=== PATIENT | male | born 1940 | race Caucasian/White ===

== ENCOUNTER 2018-10-30 20:03 | Inpatient (IN) | payer MEDICARE, OTHER ==
[~2018-10-30] VITALS: Ht 167.6 cm; Wt 79.0 kg
[2018-10-30 20:54] LABS: BASO # 0.1 x10^3/uL (0.0-0.2); BASO % 1 % (0-3); EOS # 0.1 x10^3/uL (0.0-0.7); EOS % 1 % (0-3); HEMATOCRIT 30.1 % (39.0-53.0); HEMOGLOBIN 10.2 g/dL (13.0-17.5); LYMPH # 2.4 x10^3/uL (1.0-4.8); LYMPH % 24 % (24-48); MEAN CORPUSCULAR HEMOGLOBIN 31 pg (25-35); MEAN CORPUSCULAR HGB CONC 34 g/dL (31-37); MEAN CORPUSCULAR VOLUME 92 fL (79-100); MONO # 0.9 x10^3/uL (0.0-1.1); MONO % 9 % (0-9); NEUT # 6.6 x10^3uL (1.8-7.7); NEUT % 65 % (31-73); PLATELET COUNT 316 x10^3/uL (140-400); RED BLOOD COUNT 3.29 x10^6/uL (4.30-5.70); RED CELL DISTRIBUTION WIDTH 15.2 % (11.5-14.5); WHITE BLOOD COUNT 10.1 x10^3/uL (4.0-11.0)
[2018-10-30 20:56] LABS: BILIRUBIN,URINE NEG (NEG); CLARITY,URINE TURBID; COLOR,URINE AMBER; GLUCOSE,URINE NEG (NEG); NITRITE,URINE NEG (NEG); UROBILINOGEN,URINE 0.2 mg/dL (0.2 mg/dL)
[2018-10-30 20:57] LABS: BACTERIA,URINE FEW /HPF (0-FEW); RBC,URINE TNTC /HPF (0-2); SQUAMOUS EPITHELIAL CELL,UR OCC /LPF; WBC,URINE TNTC /HPF (0-4)
[2018-10-30] MEDS ORDERED: TIOT18CA IH (21:02)
[2018-10-30] MEDS ORDERED: CRESTOR40 MG PO (21:02)
[2018-10-30] MEDS ORDERED: GLIP5TAB10 PO (21:02)
[2018-10-30] MEDS ORDERED: TRAM50TA PO (21:02)
[2018-10-30] MEDS ORDERED: AMLO10TA8 PO (21:02)
[2018-10-30] MEDS ORDERED: POLY2500 PO (21:02)
[2018-10-30] MEDS ORDERED: VENL75TA PO (21:02)
[2018-10-30] MEDS ORDERED: SODI30SP NS (21:02)
[2018-10-30] MEDS ORDERED: FLUT1AER IH (21:02)
[2018-10-30] MEDS ORDERED: CHLO15MO2 MM (21:02)
[2018-10-30] MEDS ORDERED: ZIPR20CA2 PO (21:02)
[2018-10-30] MEDS ORDERED: VENL37.56 PO (21:02)
[2018-10-30] MEDS ORDERED: TAMS0.4C97 PO (21:02)
[2018-10-30 21:11] LABS: ALBUMIN 2.9 g/dL (3.4-5.0); ALBUMIN/GLOBULIN RATIO 0.7 (1.0-1.7); CALCIUM 8.9 mg/dL (8.5-10.1); CREATININE 2.1 mg/dL (0.7-1.3); GFR 30.8; POTASSIUM 3.6 mmol/L (3.5-5.1); TOTAL BILIRUBIN 0.3 mg/dL (0.2-1.0); TOTAL PROTEIN 7.1 g/dL (6.4-8.2)
--- NOTE | 2018-10-30 22:15 | ED.ADGEN ---
Past History Past Medical History: CHF, COPD, Dementia, Renal Failure, UTI Past Surgical History: Other Alcohol Use: None Drug Use: None Adult General Chief Complaint Chief Complaint Encounter for medical evaluation HPI HPI Patient is a 78-year-old male with history of COPD, congestive heart failure and dementia who presents from local [facility] facility for medical evaluation prior to psychiatric admission. Patient reportedly to have aggressive behavior at [facility] facility. No new medications, change of medication, medical illnesses reported. Incomplete medical records available. Patient is calm, talkative and cooperative on ED arrival. Has suprapubic catheter in place. Denies fever chills, nausea vomiting or sweats. History is limited due to presence of dementia.[] Review of Systems Review of Systems Review symptoms as per history of present illness. All other review symptoms are negative. All other systems were reviewed and found to be within normal limits, except as documented in this note. Allergies Allergies Allergies Coded Allergies Type Severity Reaction Last Updated Verified cefazolin Allergy Intermediate 10/30/18 Yes Physical Exam Physical Exam Constitutional: Well developed, well nourished, no acute distress. [] HENT: Normocephalic, atraumatic, bilateral external ears normal, oropharynx moist, no oral exudates, nose normal. [] Eyes: PERRLA, EOMI, conjunctiva normal, no discharge. [] Neck: Normal range of motion, no tenderness, supple, no stridor. [] Cardiovascular:Heart rate regular rhythm, no murmur [] Lungs & Thorax: Bilateral breath sounds clear to auscultation [] Abdomen: Bowel sounds normal, soft, no tendernesS. [] Skin: Warm, dry, no erythema, no rash. [] Back: No tenderness. [] Extremities: No tenderness, no cyanosis, no clubbing, ROM intact, no edema. [] Neurologic: Alert and oriented to person, normal motor function, normal sensory function, no focal deficits noted. [] Psychologic: Affect normal, judgement normal, mood normal. [] Current Patient Data Vital Signs Vital Signs Date Time Temp Pulse Resp B/P (MAP) Pulse Ox O2 Delivery O2 Flow Rate FiO2 10/30/18 21:06 98.0 92 Room Air 10/30/18 21:05 80 20 154/87 (109) Lab Results Laboratory Tests Test 10/30/18 20:35 10/30/18 20:40 White Blood Count 10.1 x10^3/uL (4.0-11.0) Red Blood Count 3.29 x10^6/uL (4.30-5.70) L Hemoglobin 10.2 g/dL (13.0-17.5) L Hematocrit 30.1 % (39.0-53.0) L Mean Corpuscular Volume 92 fL (79-100) Mean Corpuscular Hemoglobin 31 pg (25-35) Mean Corpuscular Hemoglobin Concent 34 g/dL (31-37) Red Cell Distribution Width 15.2 % (11.5-14.5) H Platelet Count 316 x10^3/uL (140-400) Neutrophils (%) (Auto) 65 % (31-73) Lymphocytes (%) (Auto) 24 % (24-48) Monocytes (%) (Auto) 9 % (0-9) Eosinophils (%) (Auto) 1 % (0-3) Basophils (%) (Auto) 1 % (0-3) Neutrophils # (Auto) 6.6 x10^3uL (1.8-7.7) Lymphocytes # (Auto) 2.4 x10^3/uL (1.0-4.8) Monocytes # (Auto) 0.9 x10^3/uL (0.0-1.1) Eosinophils # (Auto) 0.1 x10^3/uL (0.0-0.7) Basophils # (Auto) 0.1 x10^3/uL (0.0-0.2) Sodium Level 140 mmol/L (136-145) Potassium Level 3.6 mmol/L (3.5-5.1) Chloride Level 103 mmol/L (98-107) Carbon Dioxide Level 29 mmol/L (21-32) Anion Gap 8 (6-14) Blood Urea Nitrogen 33 mg/dL (8-26) H Creatinine 2.1 mg/dL (0.7-1.3) H Estimated GFR (Cockcroft-Gault) 30.8 BUN/Creatinine Ratio 16 (6-20) Glucose Level 115 mg/dL (70-99) H Calcium Level 8.9 mg/dL (8.5-10.1) Total Bilirubin 0.3 mg/dL (0.2-1.0) Aspartate Amino Transferase (AST) 18 U/L (15-37) Alanine Aminotransferase (ALT) 21 U/L (16-63) Alkaline Phosphatase 87 U/L (46-116) Total Protein 7.1 g/dL (6.4-8.2) Albumin 2.9 g/dL (3.4-5.0) L Albumin/Globulin Ratio 0.7 (1.0-1.7) L Urine Collection Type Unknown Urine Color Maria Eugenia Urine Clarity Turbid Urine pH 6.0 Urine Specific [place] >=1.030 Urine Protein >100 mg/dl (NEG-TRACE) Urine Glucose (UA) Neg mg/dL (NEG) Urine Ketones (Stick) Neg mg/dL (NEG) Urine Blood Large (NEG) Urine Nitrite Neg (NEG) Urine Bilirubin Neg (NEG) Urine Urobilinogen Dipstick 0.2 mg/dL (0.2 mg/dL) Urine Leukocyte Esterase Mod (NEG) Urine RBC Tntc /HPF (0-2) Urine WBC Tntc /HPF (0-4) Urine Squamous Epithelial Cells Occ /LPF Urine Bacteria Few /HPF (0-FEW) EKG EKG [EKG: Reviewed] Radiology/Procedures Radiology/Procedures [] Course & Med Decision Making Course & Med Decision Making Pertinent Labs and Imaging studies reviewed. (See chart for details) [Patient is medically stable. Suprapubic catheter in place. No urinary tract symptoms reported. Medically stable at time of admission] Final Impression Final Impression [] Dragon Disclaimer Dragon Disclaimer This electronic medical record was generated, in whole or in part, using a voice recognition dictation system. RENA MERCEDES DO Oct 30, 2018 22:15
[2018-10-30 23:00] VITALS: BP 159/72
[2018-10-30] MEDS ORDERED: METHYL SALICYLATE/MENTHOL TOPICAL OINTMENT 29GM TUBE. TP PRN (23:30)
[2018-10-30] MEDS ORDERED: MAG HYDROX/AL HYDROX/SIMETH 30 ML ORAL.SUSP PO PRN (23:30)
[2018-10-30] MEDS ORDERED: MAGNESIUM HYDROXIDE 2,400 MG/30 ML ORAL.SUSP. PO PRN (23:30)
[2018-10-31] MEDS: ZIPRASIDONE 20 MG CAPSULE. PO SCH ×2 (02:22→20:27)
--- NOTE | 2018-10-31 03:40 | EKG ---
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
[2018-10-31 06:14] VITALS: BP 137/74
[2018-10-31] MEDS: VENLAFAXINE 37.5 MG TABLET. PO SCH (07:52)
[2018-10-31] MEDS: amLODIPine BESYLATE 10 MG TABLET PO SCH (07:53)
[2018-10-31] MEDS: POLYETHYLENE GLYCOL 3350 17 GM PACKET. PO SCH (07:53)
[2018-10-31] MEDS: glipiZIDE 5 MG TABLET PO SCH (07:53)
[2018-10-31] MEDS: TAMSULOSIN 0.4 MG CAP.ER.24H. PO SCH (07:53)
[2018-10-31] MEDS: CHLORHEXIDINE 0.12% 15 ML MOUTHWASH. MM SCH ×2 (07:53→08:15)
[2018-10-31] MEDS: IPRATRPIUM/ALBUTEROL 0.5/2.5MG 3 ML NEBU. NEB SCH ×2 (08:00→12:00)
[2018-10-31] MEDS: BUDESONIDE 0.5 MG/2 ML NEBU NEB SCH ×2 (08:00→20:00)
[2018-10-31] MEDS ORDERED: NON FORMULARY ITEM (Fluticasone/Vilanterol (Breo Ellipta 100-25 Mcg Inh) 1 PUFF) IH SCH (09:00)
[2018-10-31] MEDS ORDERED: VENLAFAXINE HCL 75 MG PO SCH (09:00)
[2018-10-31] MEDS: SODIUM CHLORIDE 0.65% NASAL SPRAY 45ML BOTTLE. NS SCH ×2 (09:00→20:32)
[2018-10-31] MEDS ORDERED: NON FORMULARY ITEM (Tiotropium Bromide (Spiriva) 1 CAP) IH SCH (09:00)
[2018-10-31 16:18] VITALS: BP 131/82
[2018-10-31 18:24] LABS: BACTERIA,URINE FEW /HPF (0-FEW); BILIRUBIN,URINE NEG (NEG); CLARITY,URINE TURBID; COLOR,URINE AMBER; GLUCOSE,URINE NEG (NEG); NITRITE,URINE NEG (NEG); RBC,URINE TNTC /HPF (0-2); SQUAMOUS EPITHELIAL CELL,UR OCC /LPF; UROBILINOGEN,URINE 0.2 mg/dL (0.2 mg/dL); WBC,URINE 20-40 /HPF (0-4)
[2018-10-31 20:06] LABS: THYROXINE 6.4 ug/dL (4.5-12.0)
[2018-10-31] MEDS: ATORVASTATIN CALCIUM 20 MG TABLET PO SCH (20:30)
[2018-10-31] MEDS ORDERED: ZIPRASIDONE 20 MG CAPSULE. PO SCH (21:00)
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
[2018-11-01 06:20] VITALS: BP 151/81
[2018-11-01] MEDS: IPRATRPIUM/ALBUTEROL 0.5/2.5MG 3 ML NEBU. NEB SCH ×4 (08:00→20:58)
[2018-11-01] MEDS: BUDESONIDE 0.5 MG/2 ML NEBU NEB SCH ×2 (08:00→20:58)
[2018-11-01] MEDS: glipiZIDE 5 MG TABLET PO SCH (08:21)
[2018-11-01] MEDS: VENLAFAXINE 37.5 MG TABLET. PO SCH (08:21)
[2018-11-01] MEDS: TAMSULOSIN 0.4 MG CAP.ER.24H. PO SCH (08:21)
[2018-11-01] MEDS: amLODIPine BESYLATE 10 MG TABLET PO SCH (08:21)
[2018-11-01] MEDS: POLYETHYLENE GLYCOL 3350 17 GM PACKET. PO SCH (08:21)
[2018-11-01] MEDS: CHLORHEXIDINE 0.12% 15 ML MOUTHWASH. MM SCH (09:00)
[2018-11-01] MEDS: SODIUM CHLORIDE 0.65% NASAL SPRAY 45ML BOTTLE. NS SCH ×2 (09:00→20:07)
[2018-11-01 15:55] VITALS: BP 149/76
[2018-11-01] MEDS: ZIPRASIDONE 20 MG CAPSULE. PO SCH (19:59)
[2018-11-01] MEDS: ATORVASTATIN CALCIUM 20 MG TABLET PO SCH (19:59)
[2018-11-01] MEDS: ACETAMINOPHEN 325 MG TABLET PO PRN (21:08)
[2018-11-01] MEDS: traMADol 50 MG TABLET PO PRN (21:10)
--- NOTE | 2018-11-01 23:38 | PN ---
DATE: 11/01/2018 SUBJECTIVE: The patient was seen today, met with the staff, chart reviewed. The patient has been irritable, angry, explosive temper, and also inappropriate behaviors. The patient is not able to follow directions. The patient exhibits poor impulse control, or low frustration tolerance and significant cognitive impairment. OBSERVATION: VITAL SIGNS: Temperature 97.7, blood pressure 151/81, pulse 93, respirations 16, O2 sat 96%. Slept about 6 hours last night. The patient's appetite is fair. MEDICATIONS: The patient's current medications include venlafaxine 112.5 mg that he was taking for quite some time, olanzapine 2.5 mg q. 2 hours p.r.n., and Geodon 40 mg at night. LABORATORY DATA: The patient's lab reviewed. The patient's hemoglobin is 10.2. ASSESSMENT: 1. Dementia, most likely vascular versus Alzheimer's with behavior problems. 2. Impulse control disorder, unspecified. 3. Mood disorder, unspecified. PLAN: To continue with the current treatment. We will consider increasing Geodon to 60, if the patient continues to show major behavior problems. LENGTH OF STAY: 7-10 days. KRISTY CRUZ MD DR: NIKKI/niya JOB#: [id number] / [id number]
[2018-11-02 06:11] VITALS: BP 139/84
[2018-11-02] MEDS: BUDESONIDE 0.5 MG/2 ML NEBU NEB SCH ×3 (06:12→20:06)
[2018-11-02] MEDS: IPRATRPIUM/ALBUTEROL 0.5/2.5MG 3 ML NEBU. NEB SCH ×4 (06:12→20:06)
[2018-11-02] MEDS: TAMSULOSIN 0.4 MG CAP.ER.24H. PO SCH (08:48)
[2018-11-02] MEDS: glipiZIDE 5 MG TABLET PO SCH (08:48)
[2018-11-02] MEDS: VENLAFAXINE 37.5 MG TABLET. PO SCH (08:48)
[2018-11-02] MEDS: amLODIPine BESYLATE 10 MG TABLET PO SCH (08:49)
[2018-11-02] MEDS: CHLORHEXIDINE 0.12% 15 ML MOUTHWASH. MM SCH ×2 (08:49→09:00)
[2018-11-02] MEDS: POLYETHYLENE GLYCOL 3350 17 GM PACKET. PO SCH ×2 (08:49→09:00)
[2018-11-02] MEDS: SODIUM CHLORIDE 0.65% NASAL SPRAY 45ML BOTTLE. NS SCH ×3 (08:53→19:38)
[2018-11-02] MEDS: traMADol 50 MG TABLET PO PRN ×2 (09:24→19:38)
[2018-11-02] MEDS ORDERED: OLANZapine IM 10 MG VIAL. IM PRN (11:45)
[2018-11-02 16:01] VITALS: BP 115/68
[2018-11-02] MEDS: ATORVASTATIN CALCIUM 20 MG TABLET PO SCH (19:36)
[2018-11-02] MEDS: ZIPRASIDONE 20 MG CAPSULE. PO SCH (19:38)
--- NOTE | 2018-11-03 00:30 | PN ---
DATE: 11/02/2018 SUBJECTIVE: The patient was seen today, met with the staff, chart reviewed and also completed the treatment review conference. I also spoke with the patient's son who is his guardian, discussed at length with regard to the patient's problems and past treatments and some anxiety about giving the patient too much medications and the side effects. Son reports that patient has been having problems at least for the past 8 or 9 years, a gradual decline in his cognitive functioning. He also stated that he did not want him to be on Zyprexa because side effects, but staff reports that the patient is on Zyprexa 5 mg p.r.n. apparently showed good response to it. Son was given information about the medications side effects, some of the medications that the patient has been treated with in the past and current. The patient apparently has been in placements before and apparently, he had problems, most of the places. Apparently, he was getting worse to the point. He is threatening and also not able to communicate his feelings and his needs. The patient is also verbally abusive towards the female staff. OBSERVATION: VITAL SIGNS: Temperature 98.0, blood pressure 139/84, pulse 93, respirations 20, O2 sat 95%. Slept about 6-1/2 hours last night. The patient's behavior continued to worsen. He is irritable, angry and demanding, also confused. The patient also is not able to complete a sentence. The patient has significant problems with his memory, forgets things, keep repeating himself. LABORATORY DATA: The patient's lab reviewed. MEDICATIONS: The patient's current medications, venlafaxine 112.5 mg daily, olanzapine 2.5 mg q. 2 hours p.r.n. The patient also received 5 mg p.o. today because of severe behavior problems, difficult to manage. The patient is also on Geodon 40 mg at night. The patient's lab reviewed. The patient is not having any side effects to the medications. ASSESSMENT: 1. Dementia, most likely vascular versus Alzheimer's with behavior problems. 2. Impulse control disorder, unspecified. 3. Mood disorder, unspecified. PLAN: To continue with the treatment. Continue to monitor the behavior. If the problem continues to worsen, we will try to increase the Geodon to 60 mg daily. LENGTH OF STAY: 7-10 days. KRISTY CRUZ MD DR: Kevin JOB#: [id number] / [id number]
[2018-11-03] MEDS: IPRATRPIUM/ALBUTEROL 0.5/2.5MG 3 ML NEBU. NEB SCH ×4 (05:47→20:09)
[2018-11-03] MEDS: BUDESONIDE 0.5 MG/2 ML NEBU NEB SCH ×3 (05:47→20:09)
[2018-11-03 06:24] VITALS: BP 118/72
[2018-11-03] MEDS: VENLAFAXINE 37.5 MG TABLET. PO SCH (07:55)
[2018-11-03] MEDS: FLUCONAZOLE 100 MG TABLET. PO SCH (07:55)
[2018-11-03] MEDS: glipiZIDE 5 MG TABLET PO SCH (07:55)
[2018-11-03] MEDS: TAMSULOSIN 0.4 MG CAP.ER.24H. PO SCH (07:55)
[2018-11-03] MEDS: amLODIPine BESYLATE 10 MG TABLET PO SCH (07:56)
[2018-11-03] MEDS: SODIUM CHLORIDE 0.65% NASAL SPRAY 45ML BOTTLE. NS SCH ×2 (09:00→19:43)
[2018-11-03] MEDS: CHLORHEXIDINE 0.12% 15 ML MOUTHWASH. MM SCH (09:00)
[2018-11-03] MEDS: POLYETHYLENE GLYCOL 3350 17 GM PACKET. PO SCH (09:00)
[2018-11-03 16:04] VITALS: BP 148/70
[2018-11-03] MEDS: ZIPRASIDONE 20 MG CAPSULE. PO SCH (19:42)
[2018-11-03] MEDS: ATORVASTATIN CALCIUM 20 MG TABLET PO SCH (19:43)
[2018-11-03] MEDS: DOXYCYCLINE HYCLATE 100 MG TABLET PO SCH (19:44)
[2018-11-03] MEDS: LACTOBACILLUS RHAMNOSUS GG 1 CAPSULE. PO SCH (19:44)
--- NOTE | 2018-11-03 23:12 | PN ---
DATE: 11/03/2018 SUBJECTIVE: The patient was seen today, met with the staff, chart reviewed. Staff reports he continues to be labile, agitated, yelling and calms down and also becomes talkative and coherent. OBSERVATION: Temperature 97.3, blood pressure 118/72, pulse 78, respirations 18, O2 sat 98%. Slept about 6 hours last night. The patient's appetite is normal. The patient apparently lately has been not eating well, losing weight. MEDICATIONS: The patient's current medications include venlafaxine that was decreased to 75 mg daily. His Geodon was increased to 60 mg at night. He is also on Zyprexa as p.r.n. ASSESSMENT: 1. Dementia, most likely vascular versus Alzheimer's with behavior problems. 2. Impulse control disorder, unspecified; mood disorder, unspecified. PLAN: Continue with the treatment. KRISTY CRUZ MD DR: NIKKI/niya JOB#: [id number] / [id number]
[2018-11-04] MEDS: traMADol 50 MG TABLET PO PRN (02:03)
[2018-11-04] MEDS: BUDESONIDE 0.5 MG/2 ML NEBU NEB SCH (05:12)
[2018-11-04] MEDS: IPRATRPIUM/ALBUTEROL 0.5/2.5MG 3 ML NEBU. NEB SCH ×3 (05:12→16:35)
[2018-11-04 06:24] VITALS: BP 145/72
[2018-11-04] MEDS: CHLORHEXIDINE 0.12% 15 ML MOUTHWASH. MM SCH (08:29)
[2018-11-04] MEDS: glipiZIDE 5 MG TABLET PO SCH (08:29)
[2018-11-04] MEDS: FLUCONAZOLE 100 MG TABLET. PO SCH (08:29)
[2018-11-04] MEDS: VENLAFAXINE 37.5 MG TABLET. PO SCH (08:30)
[2018-11-04] MEDS: POLYETHYLENE GLYCOL 3350 17 GM PACKET. PO SCH (08:30)
[2018-11-04] MEDS: TAMSULOSIN 0.4 MG CAP.ER.24H. PO SCH (08:30)
[2018-11-04] MEDS: amLODIPine BESYLATE 10 MG TABLET PO SCH (08:31)
[2018-11-04] MEDS: DOXYCYCLINE HYCLATE 100 MG TABLET PO SCH ×2 (08:31→19:28)
[2018-11-04] MEDS: SODIUM CHLORIDE 0.65% NASAL SPRAY 45ML BOTTLE. NS SCH ×2 (08:31→19:29)
[2018-11-04] MEDS: LACTOBACILLUS RHAMNOSUS GG 1 CAPSULE. PO SCH ×2 (08:32→19:29)
[2018-11-04 15:50] VITALS: BP 139/74
[2018-11-04] MEDS: ZIPRASIDONE 20 MG CAPSULE. PO SCH (19:28)
[2018-11-04] MEDS: ATORVASTATIN CALCIUM 20 MG TABLET PO SCH (19:29)
[2018-11-04] MEDS: hydrOXYzine HCL 25 MG TABLET PO PRN (20:48)
--- NOTE | 2018-11-04 22:05 | PDOC ---
Exam Note: Geremias Note: Please also refer to the separate dictated note~for this date of service dictated separately.~Patient seen individually. Discussed the patient with Nursing staff reviewed the chart.~Reviewed interim history and current functioning. Reviewed vital signs,~Labs/ Radiology~and current medications noted below. Continue current treatment with the changes noted in the dictated addendum note Assessment: Vital Signs/I&O: Vital Signs Date Time Temp Pulse Resp B/P (MAP) Pulse Ox O2 Delivery O2 Flow Rate FiO2 11/04/18 16:35 97 Room Air 11/04/18 15:50 97.5 102 20 139/74 (95) I & O 11/03/18 11/03/18 11/04/18 14:59 22:59 06:59 Intake Total 720 ml 240 ml 120 ml Balance 720 ml 240 ml 120 ml Labs: Laboratory Tests Test 11/04/18 07:31 Glucose (Fingerstick) 122 mg/dL (70-99) H Current Medications: Meds: Current Medications Medications (Trade) Dose Ordered Sig/Hoda Route PRN Reason Start Time Stop Time Status Last Admin Dose Admin Venlafaxine HCl (Effexor) 75 mg DAILY PO 11/04/18 09:00 11/04/18 08:30 Olanzapine (ZyPREXA ZYDIS) 2.5 mg PRN Q2HR PRN PO PSYCHOSIS 11/04/18 20:30 11/04/18 20:48 Hydroxyzine HCl (Atarax) 25 mg PRN Q2HR PRN PO ANXIETY / AGITATION 11/04/18 20:30 11/04/18 20:48 I have reviewed the current psychotropics carefully including drug interactions. Risk benefit ratio favors no change other than as noted in my dictated progress note. 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
[2018-11-05 06:23] VITALS: BP 145/74
[2018-11-05] MEDS: POLYETHYLENE GLYCOL 3350 17 GM PACKET. PO SCH (08:14)
[2018-11-05] MEDS: glipiZIDE 5 MG TABLET PO SCH (08:14)
[2018-11-05] MEDS: LACTOBACILLUS RHAMNOSUS GG 1 CAPSULE. PO SCH ×2 (08:14→19:41)
[2018-11-05] MEDS: FLUCONAZOLE 100 MG TABLET. PO SCH (08:14)
[2018-11-05] MEDS: VENLAFAXINE 37.5 MG TABLET. PO SCH (08:14)
[2018-11-05] MEDS: TAMSULOSIN 0.4 MG CAP.ER.24H. PO SCH (08:14)
[2018-11-05] MEDS: DOXYCYCLINE HYCLATE 100 MG TABLET PO SCH ×2 (08:15→19:41)
[2018-11-05] MEDS: amLODIPine BESYLATE 10 MG TABLET PO SCH (08:15)
[2018-11-05] MEDS: SODIUM CHLORIDE 0.65% NASAL SPRAY 45ML BOTTLE. NS SCH ×2 (09:00→19:41)
[2018-11-05] MEDS: CHLORHEXIDINE 0.12% 15 ML MOUTHWASH. MM SCH (09:00)
[2018-11-05] MEDS: BUDESONIDE 0.5 MG/2 ML NEBU NEB SCH ×2 (10:07→20:00)
[2018-11-05] MEDS: IPRATRPIUM/ALBUTEROL 0.5/2.5MG 3 ML NEBU. NEB SCH ×4 (10:07→16:00)
[2018-11-05 16:53] VITALS: BP 105/62
[2018-11-05] MEDS: ATORVASTATIN CALCIUM 20 MG TABLET PO SCH (19:40)
[2018-11-05] MEDS: ZIPRASIDONE 20 MG CAPSULE. PO SCH (19:41)
[2018-11-05] MEDS: hydrOXYzine HCL 25 MG TABLET PO PRN (21:49)
[2018-11-05] MEDS: traMADol 50 MG TABLET PO PRN (21:49)
--- NOTE | 2018-11-05 22:46 | PDOC ---
Exam Note: Geremias Note: Please also refer to the separate dictated note~for this date of service dictated separately.~Patient seen individually. Discussed the patient with Nursing staff reviewed the chart.~Reviewed interim history and current functioning. Reviewed vital signs,~Labs/ Radiology~and current medications noted below. Continue current treatment with the changes noted in the dictated addendum note Assessment: Vital Signs/I&O: Vital Signs Date Time Temp Pulse Resp B/P (MAP) Pulse Ox O2 Delivery O2 Flow Rate FiO2 11/05/18 21:49 99 11/05/18 16:53 98.6 87 18 105/62 (76) 11/05/18 15:59 Room Air I & O 11/04/18 11/04/18 11/05/18 14:59 22:59 06:59 Intake Total 600 ml 240 ml 120 ml Balance 600 ml 240 ml 120 ml Labs: Laboratory Tests Test 11/05/18 07:20 Glucose (Fingerstick) 98 mg/dL (70-99) Current Medications: I have reviewed the current psychotropics carefully including drug interactions. Risk benefit ratio favors no change other than as noted in my dictated progress note. 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
[2018-11-06] MEDS: IPRATRPIUM/ALBUTEROL 0.5/2.5MG 3 ML NEBU. NEB SCH ×5 (05:16→20:00)
[2018-11-06 06:09] VITALS: BP 119/63
[2018-11-06] MEDS: LACTOBACILLUS RHAMNOSUS GG 1 CAPSULE. PO SCH ×2 (08:22→20:14)
[2018-11-06] MEDS: glipiZIDE 5 MG TABLET PO SCH (08:22)
[2018-11-06] MEDS: VENLAFAXINE 37.5 MG TABLET. PO SCH (08:23)
[2018-11-06] MEDS: DIVALPROEX 125 MG CAP.SPRINK PO SCH ×3 (08:23→17:18)
[2018-11-06] MEDS: amLODIPine BESYLATE 10 MG TABLET PO SCH (08:23)
[2018-11-06] MEDS: FLUCONAZOLE 100 MG TABLET. PO SCH (08:23)
[2018-11-06] MEDS: TAMSULOSIN 0.4 MG CAP.ER.24H. PO SCH (08:23)
[2018-11-06] MEDS: DOXYCYCLINE HYCLATE 100 MG TABLET PO SCH ×2 (08:24→20:14)
[2018-11-06] MEDS: CHLORHEXIDINE 0.12% 15 ML MOUTHWASH. MM SCH (09:00)
[2018-11-06] MEDS: SODIUM CHLORIDE 0.65% NASAL SPRAY 45ML BOTTLE. NS SCH ×2 (09:00→20:28)
[2018-11-06] MEDS: POLYETHYLENE GLYCOL 3350 17 GM PACKET. PO SCH (09:00)
[2018-11-06] MEDS: BUDESONIDE 0.5 MG/2 ML NEBU NEB SCH ×2 (11:44→20:00)
[2018-11-06] MEDS ORDERED: HALOPERIDOL LACT 5 MG/ML VIAL. IM SCH (15:30)
[2018-11-06 16:39] VITALS: BP 117/57
[2018-11-06] MEDS: ATORVASTATIN CALCIUM 20 MG TABLET PO SCH (20:14)
[2018-11-06] MEDS: ZIPRASIDONE 20 MG CAPSULE. PO SCH (20:14)
--- NOTE | 2018-11-06 22:47 | PDOC ---
Exam Note: Geremias Note: Please also refer to the separate dictated note~for this date of service dictated separately.~Patient seen individually. Discussed the patient with Nursing staff reviewed the chart.~Reviewed interim history and current functioning. Reviewed vital signs,~Labs/ Radiology~and current medications noted below. Continue current treatment with the changes noted in the dictated addendum note Assessment: Vital Signs/I&O: Vital Signs Date Time Temp Pulse Resp B/P (MAP) Pulse Ox O2 Delivery O2 Flow Rate FiO2 11/06/18 16:39 97.4 65 16 117/57 (77) 95 11/06/18 11:45 Room Air I & O 11/05/18 11/05/18 11/06/18 15:00 23:00 07:00 Intake Total 960 ml 240 ml 240 ml Balance 960 ml 240 ml 240 ml Labs: Laboratory Tests Test 11/06/18 07:23 Glucose (Fingerstick) 87 mg/dL (70-99) Current Medications: Meds: Current Medications Medications (Trade) Dose Ordered Sig/Hoda Route PRN Reason Start Time Stop Time Status Last Admin Dose Admin Divalproex Sodium (Depakote Sprinkles) 125 mg TID@0900,1300,1700 PO 11/06/18 09:00 11/06/18 17:18 Haloperidol Lactate (Haldol) 5 mg DAILY IM 11/06/18 15:30 11/06/18 19:12 DC 11/06/18 15:17 Lorazepam (Ativan Inj) 0.5 mg DAILY IM 11/06/18 15:30 11/06/18 15:17 I have reviewed the current psychotropics carefully including drug interactions. Risk benefit ratio favors no change other than as noted in my dictated progress note. 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
--- NOTE | 2018-11-07 00:20 | PN ---
DATE: 11/04/2018 PSYCHIATRIC PROGRESS NOTE This late entry 11/04/2018 covers elements not covered in my initial note. SUBJECTIVE: I met with the patient in the evening. The patient was quite agitated in the morning, confused. Reviewed his history from Dr. Nevarez who had been covering for me over the past 1 week. At times, he has been helpful with staff, other times quite agitated and somewhat slow with cares. He has been rhyming rather profane statements "fuck a duck" per nursing report. He seems to get overstimulated easily on the unit. REVIEW OF SYSTEMS: No CV, , pulmonary, eye, ENT system symptoms on review. Reliability poor. MENTAL STATUS EXAM: Oriented to himself. Insight, judgment, recent and remote memory, attention, concentration, fund of knowledge poor, consistent with his diagnosis. I had to follow him around the unit to assess him as he could not sit still. LABORATORY DATA: Reviewed. IMPRESSION: Major neurocognitive disorder, Alzheimer, vascular with delusion, depression, behavioral disturbance; anxiety disorder, unspecified; impulse control disorder, unspecified. Rest unchanged. PLAN: Continue current psychotropics. Effexor ER 75 mg a day, Geodon 60 mg at bedtime, Zyprexa p.r.n., consider Depakote as a mood stabilizer if agitation resurfaces. MAN Jeremy TARANGO MD DR: BHARATHI/niya JOB#: [id number] / [id number]
--- NOTE | 2018-11-07 02:43 | PN ---
DATE: 11/05/2018 PSYCHIATRIC PROGRESS NOTE This is a late entry 11/05/2018, covers the elements not covered in my initial note. SUBJECTIVE: I met with the patient in the evening. The patient slept 5 hours previous night. Previous night, the patient had a very difficult evening. He was noted to be extremely agitated, combative, hitting and banging on the doors, cursing at staff, slept 5 hours previous evenings. 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 Refused labs in the morning. REVIEW OF SYSTEMS: No CV, , pulmonary, eye, ENT system symptoms on review. Reliability poor. MENTAL STATUS EXAM: Oriented to himself. Insight, judgment, recent and remote memory, attention, concentration, fund of knowledge poor, consistent with his diagnosis mentioned in my initial note. IMPRESSION: Major neurocognitive disorder, Alzheimer, vascular with delusion, depression, behavioral disturbance; anxiety disorder, unspecified; impulse control disorder, unspecified. PLAN: Start Depakote Sprinkles 125 mg 9:00 a.m., 1:00 p.m., 5:00 p.m. Check CBC, CMP, valproic acid level in 3 days. Continue Geodon 60 mg at bedtime, Effexor ER 75 mg a day, Zyprexa and Atarax p.r.n. for now. MAN Jeremy TARANGO MD DR: BHARATHI/niya JOB#: [id number] / [id number]
[2018-11-07 03:18] LABS: BASO % 0 % (0-3); EOS # 0.2 x10^3/uL (0.0-0.7); EOS % 2 % (0-3); HEMATOCRIT 29.6 % (39.0-53.0); HEMOGLOBIN 9.9 g/dL (13.0-17.5); LYMPH # 3.2 x10^3/uL (1.0-4.8); LYMPH % 30 % (24-48); MEAN CORPUSCULAR HEMOGLOBIN 31 pg (25-35); MEAN CORPUSCULAR HGB CONC 34 g/dL (31-37); MEAN CORPUSCULAR VOLUME 92 fL (79-100); MONO # 0.9 x10^3/uL (0.0-1.1); MONO % 8 % (0-9); NEUT # 6.5 x10^3uL (1.8-7.7); NEUT % 60 % (31-73); PLATELET COUNT 371 x10^3/uL (140-400); RED BLOOD COUNT 3.21 x10^6/uL (4.30-5.70); RED CELL DISTRIBUTION WIDTH 15.3 % (11.5-14.5); WHITE BLOOD COUNT 10.9 x10^3/uL (4.0-11.0)
[2018-11-07 04:10] LABS: ALBUMIN 2.5 g/dL (3.4-5.0); ALBUMIN/GLOBULIN RATIO 0.6 (1.0-1.7); CALCIUM 9.3 mg/dL (8.5-10.1); GFR 32.6; TOTAL BILIRUBIN 0.3 mg/dL (0.2-1.0); TOTAL PROTEIN 6.7 g/dL (6.4-8.2)
[2018-11-07] MEDS: IPRATRPIUM/ALBUTEROL 0.5/2.5MG 3 ML NEBU. NEB SCH ×4 (05:16→20:00)
[2018-11-07 06:14] VITALS: BP 116/76
[2018-11-07] MEDS: POLYETHYLENE GLYCOL 3350 17 GM PACKET. PO SCH (08:42)
[2018-11-07] MEDS: glipiZIDE 5 MG TABLET PO SCH (08:42)
[2018-11-07] MEDS: CHLORHEXIDINE 0.12% 15 ML MOUTHWASH. MM SCH (08:42)
[2018-11-07] MEDS: TAMSULOSIN 0.4 MG CAP.ER.24H. PO SCH (08:43)
[2018-11-07] MEDS: VENLAFAXINE 37.5 MG TABLET. PO SCH (08:43)
[2018-11-07] MEDS: LACTOBACILLUS RHAMNOSUS GG 1 CAPSULE. PO SCH ×2 (08:43→19:29)
[2018-11-07] MEDS: amLODIPine BESYLATE 10 MG TABLET PO SCH (08:43)
[2018-11-07] MEDS: DIVALPROEX 125 MG CAP.SPRINK PO SCH ×3 (08:43→17:39)
[2018-11-07] MEDS: DOXYCYCLINE HYCLATE 100 MG TABLET PO SCH ×2 (08:47→19:29)
[2018-11-07] MEDS: SODIUM CHLORIDE 0.65% NASAL SPRAY 45ML BOTTLE. NS SCH ×2 (08:47→19:30)
[2018-11-07] MEDS: BUDESONIDE 0.5 MG/2 ML NEBU NEB SCH ×2 (10:12→20:00)
[2018-11-07] MEDS: traMADol 50 MG TABLET PO PRN (16:01)
--- NOTE | 2018-11-07 16:43 | RAD ---
HUMERUS RIGHT, ELBOW RIGHT 2V, SHOULDER 2+V RIGHT 11/07/2018 3:02 PM INDICATION: Trauma to the right shoulder COMPARISON: None available. TECHNIQUE: 2 views the right shoulder, 2 views of the right humerus and 2 views of the right elbow are provided. FINDINGS: There is no acute fracture or dislocation. There is no elbow joint effusion. Vascular calcifications are present. Scapula appears intact. Clavicle is intact. Bone mineralization is within normal limits. Joint spaces are maintained. Regional soft tissues are within normal limits. There is no soft tissue gas or osseous erosion. IMPRESSION: No acute fracture or dislocation. Electronically signed by: Rhonda Cristobal MD (11/07/2018 4:40 PM) [id number]
[2018-11-07] MEDS: ZIPRASIDONE 20 MG CAPSULE. PO SCH (19:29)
[2018-11-07] MEDS: ATORVASTATIN CALCIUM 20 MG TABLET PO SCH (19:30)
[2018-11-07] MEDS: LORazepam 0.5 MG TABLET PO PRN (19:31)
--- NOTE | 2018-11-07 22:42 | PDOC ---
Exam Note: Geremias Note: Please also refer to the separate dictated note~for this date of service dictated separately.~Patient seen individually. Discussed the patient with Nursing staff reviewed the chart.~Reviewed interim history and current functioning. Reviewed vital signs,~Labs/ Radiology~and current medications noted below. Continue current treatment with the changes noted in the dictated addendum note Assessment: Vital Signs/I&O: Vital Signs Date Time Temp Pulse Resp B/P (MAP) Pulse Ox O2 Delivery O2 Flow Rate FiO2 11/07/18 17:15 96 Room Air 11/07/18 16:16 98.1 94 16 11/07/18 08:43 116/76 I & O 11/06/18 11/06/18 11/07/18 14:59 22:59 06:59 Intake Total 240 ml 240 ml 240 ml Balance 240 ml 240 ml 240 ml Labs: Laboratory Tests Test 11/07/18 03:07 11/07/18 07:31 White Blood Count 10.9 x10^3/uL (4.0-11.0) Red Blood Count 3.21 x10^6/uL (4.30-5.70) L Hemoglobin 9.9 g/dL (13.0-17.5) L Hematocrit 29.6 % (39.0-53.0) L Mean Corpuscular Volume 92 fL (79-100) Mean Corpuscular Hemoglobin 31 pg (25-35) Mean Corpuscular Hemoglobin Concent 34 g/dL (31-37) Red Cell Distribution Width 15.3 % (11.5-14.5) H Platelet Count 371 x10^3/uL (140-400) Neutrophils (%) (Auto) 60 % (31-73) Lymphocytes (%) (Auto) 30 % (24-48) Monocytes (%) (Auto) 8 % (0-9) Eosinophils (%) (Auto) 2 % (0-3) Basophils (%) (Auto) 0 % (0-3) Neutrophils # (Auto) 6.5 x10^3uL (1.8-7.7) Lymphocytes # (Auto) 3.2 x10^3/uL (1.0-4.8) Monocytes # (Auto) 0.9 x10^3/uL (0.0-1.1) Eosinophils # (Auto) 0.2 x10^3/uL (0.0-0.7) Basophils # (Auto) 0.0 x10^3/uL (0.0-0.2) Sodium Level 146 mmol/L (136-145) H Potassium Level 4.0 mmol/L (3.5-5.1) Chloride Level 108 mmol/L (98-107) H Carbon Dioxide Level 29 mmol/L (21-32) Anion Gap 9 (6-14) Blood Urea Nitrogen 30 mg/dL (8-26) H Creatinine 2.0 mg/dL (0.7-1.3) H Estimated GFR (Cockcroft-Gault) 32.6 BUN/Creatinine Ratio 15 (6-20) Glucose Level 104 mg/dL (70-99) H Calcium Level 9.3 mg/dL (8.5-10.1) Total Bilirubin 0.3 mg/dL (0.2-1.0) Aspartate Amino Transferase (AST) 28 U/L (15-37) Alanine Aminotransferase (ALT) 26 U/L (16-63) Alkaline Phosphatase 82 U/L (46-116) Total Protein 6.7 g/dL (6.4-8.2) Albumin 2.5 g/dL (3.4-5.0) L Albumin/Globulin Ratio 0.6 (1.0-1.7) L Glucose (Fingerstick) 114 mg/dL (70-99) H Current Medications: I have reviewed the current psychotropics carefully including drug interactions. Risk benefit ratio favors no change other than as noted in my dictated progress note. 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
--- NOTE | 2018-11-07 23:44 | PN ---
DATE: 11/06/2018 PSYCHIATRIC PROGRESS NOTE This is a late entry 11/06/2018 covers elements not covered in my initial note. SUBJECTIVE: I met with the patient in the evening. The patient slept 6 hours previous night. Pharmacy had indicated that Atarax might contribute to increased QTC interval and we will go ahead and stop it. He is on Zyprexa p.r.n., gets intermittently agitated, was less so than the day before. REVIEW OF SYSTEMS: No CV, , pulmonary, eye, ENT system symptoms on review. Reliability poor. MENTAL STATUS EXAM: Oriented to himself. Insight, judgment, recent and remote memory, attention, concentration, fund of knowledge poor, consistent with his diagnosis. LABORATORY DATA: Reviewed. IMPRESSION: Unchanged from initial note. PLAN: No change from initial note and the changes initiated yesterday will be followed through including the Depakote followed by labs and valproic acid level to be adjusted to therapeutic level. TERRELL TARANGO MD DR: BHARATHI/niya JOB#: [id number] / [id number]
[2018-11-08 06:20] VITALS: BP 149/74
[2018-11-08 06:49] LABS: BASO # 0.1 x10^3/uL (0.0-0.2); BASO % 0 % (0-3); EOS # 0.2 x10^3/uL (0.0-0.7); EOS % 2 % (0-3); HEMATOCRIT 30.9 % (39.0-53.0); HEMOGLOBIN 10.1 g/dL (13.0-17.5); LYMPH # 2.7 x10^3/uL (1.0-4.8); LYMPH % 19 % (24-48); MEAN CORPUSCULAR HEMOGLOBIN 30 pg (25-35); MEAN CORPUSCULAR HGB CONC 33 g/dL (31-37); MEAN CORPUSCULAR VOLUME 92 fL (79-100); MONO # 1.2 x10^3/uL (0.0-1.1); MONO % 8 % (0-9); NEUT # 10.5 x10^3uL (1.8-7.7); NEUT % 71 % (31-73); PLATELET COUNT 411 x10^3/uL (140-400); RED BLOOD COUNT 3.34 x10^6/uL (4.30-5.70); RED CELL DISTRIBUTION WIDTH 15.5 % (11.5-14.5); WHITE BLOOD COUNT 14.7 x10^3/uL (4.0-11.0)
[2018-11-08 07:04] LABS: ALBUMIN 2.6 g/dL (3.4-5.0); ALBUMIN/GLOBULIN RATIO 0.6 (1.0-1.7); ALK PHOS 83 U/L (46-116); ALT (SGPT) 26 U/L (16-63); ANION GAP 8 (6-14); AST (SGOT) 23 U/L (15-37); BLOOD UREA NITROGEN 30 mg/dL (8-26); BUN/CREATININE RATIO 16 (6-20); CALCIUM 9.2 mg/dL (8.5-10.1); CARBON DIOXIDE 30 mmol/L (21-32); CHLORIDE 107 mmol/L (98-107); CREATININE 1.9 mg/dL (0.7-1.3); GFR 34.5; GLUCOSE 95 mg/dL (70-99); POTASSIUM 4.7 mmol/L (3.5-5.1); SODIUM 145 mmol/L (136-145); TOTAL BILIRUBIN 0.3 mg/dL (0.2-1.0)
[2018-11-08 07:05] LABS: VAL ACID 15 mcg/mL (50-100)
[2018-11-08] MEDS: VENLAFAXINE 37.5 MG TABLET. PO SCH (07:22)
[2018-11-08] MEDS: glipiZIDE 5 MG TABLET PO SCH (07:22)
[2018-11-08] MEDS: LACTOBACILLUS RHAMNOSUS GG 1 CAPSULE. PO SCH ×2 (07:22→19:23)
[2018-11-08] MEDS: DIVALPROEX 125 MG CAP.SPRINK PO SCH ×5 (07:23→19:30)
[2018-11-08] MEDS: DOXYCYCLINE HYCLATE 100 MG TABLET PO SCH ×2 (07:23→19:24)
[2018-11-08] MEDS: TAMSULOSIN 0.4 MG CAP.ER.24H. PO SCH (07:23)
[2018-11-08] MEDS: amLODIPine BESYLATE 10 MG TABLET PO SCH (07:23)
[2018-11-08] MEDS: CHLORHEXIDINE 0.12% 15 ML MOUTHWASH. MM SCH (07:24)
[2018-11-08] MEDS: POLYETHYLENE GLYCOL 3350 17 GM PACKET. PO SCH (07:24)
[2018-11-08] MEDS: SODIUM CHLORIDE 0.65% NASAL SPRAY 45ML BOTTLE. NS SCH ×2 (09:00→19:25)
[2018-11-08] MEDS: BUDESONIDE 0.5 MG/2 ML NEBU NEB SCH ×2 (10:07→20:00)
[2018-11-08] MEDS: IPRATRPIUM/ALBUTEROL 0.5/2.5MG 3 ML NEBU. NEB SCH ×2 (10:07→10:08)
[2018-11-08] MEDS ORDERED: IPRATRPIUM/ALBUTEROL 0.5/2.5MG 3 ML NEBU. NEB PRN (11:45)
[2018-11-08 15:43] VITALS: BP 127/58
--- NOTE | 2018-11-08 15:51 | RAD ---
Chest radiograph 11/08/2018 12:58 PM INDICATION: Elevated white count COMPARISON: None available TECHNIQUE: Frontal view of the chest is provided. FINDINGS: The cardiomediastinal silhouette is within normal limits. Median sternotomy changes are present. Mild calcified atheromatous plaque is identified involving the thoracic aorta. There are no pleural effusions. There is no pulmonary vascular congestion. There is no pneumothorax. The lungs are clear. No significant osseous abnormality is identified. IMPRESSION: No acute cardiopulmonary process. Electronically signed by: Rhonda Cristobal MD (11/08/2018 3:48 PM) [email or web address]
[2018-11-08] MEDS: ZIPRASIDONE 20 MG CAPSULE. PO SCH (19:23)
[2018-11-08] MEDS: ATORVASTATIN CALCIUM 20 MG TABLET PO SCH (19:23)
[2018-11-08] MEDS: LORazepam 0.5 MG TABLET PO PRN (21:48)
--- NOTE | 2018-11-08 23:05 | PDOC ---
Exam Note: Geremias Note: Please also refer to the separate dictated note~for this date of service dictated separately.~Patient seen individually. Discussed the patient with Nursing staff reviewed the chart.~Reviewed interim history and current functioning. Reviewed vital signs,~Labs/ Radiology~and current medications noted below. Continue current treatment with the changes noted in the dictated addendum note Assessment: Vital Signs/I&O: Vital Signs Date Time Temp Pulse Resp B/P (MAP) Pulse Ox O2 Delivery O2 Flow Rate FiO2 11/08/18 15:43 98.1 60 20 127/58 (81) 96 11/08/18 10:09 Room Air I & O 11/07/18 11/07/18 11/08/18 15:00 23:00 07:00 Intake Total 600 ml 480 ml Output Total 500 ml Balance 100 ml 480 ml Labs: Laboratory Tests Test 11/08/18 06:44 11/08/18 07:27 White Blood Count 14.7 x10^3/uL (4.0-11.0) H Red Blood Count 3.34 x10^6/uL (4.30-5.70) L Hemoglobin 10.1 g/dL (13.0-17.5) L Hematocrit 30.9 % (39.0-53.0) L Mean Corpuscular Volume 92 fL (79-100) Mean Corpuscular Hemoglobin 30 pg (25-35) Mean Corpuscular Hemoglobin Concent 33 g/dL (31-37) Red Cell Distribution Width 15.5 % (11.5-14.5) H Platelet Count 411 x10^3/uL (140-400) H Neutrophils (%) (Auto) 71 % (31-73) Lymphocytes (%) (Auto) 19 % (24-48) L Monocytes (%) (Auto) 8 % (0-9) Eosinophils (%) (Auto) 2 % (0-3) Basophils (%) (Auto) 0 % (0-3) Neutrophils # (Auto) 10.5 x10^3uL (1.8-7.7) H Lymphocytes # (Auto) 2.7 x10^3/uL (1.0-4.8) Monocytes # (Auto) 1.2 x10^3/uL (0.0-1.1) H Eosinophils # (Auto) 0.2 x10^3/uL (0.0-0.7) Basophils # (Auto) 0.1 x10^3/uL (0.0-0.2) Sodium Level 145 mmol/L (136-145) Potassium Level 4.7 mmol/L (3.5-5.1) Chloride Level 107 mmol/L (98-107) Carbon Dioxide Level 30 mmol/L (21-32) Anion Gap 8 (6-14) Blood Urea Nitrogen 30 mg/dL (8-26) H Creatinine 1.9 mg/dL (0.7-1.3) H Estimated GFR (Cockcroft-Gault) 34.5 BUN/Creatinine Ratio 16 (6-20) Glucose Level 95 mg/dL (70-99) Calcium Level 9.2 mg/dL (8.5-10.1) Total Bilirubin 0.3 mg/dL (0.2-1.0) Aspartate Amino Transferase (AST) 23 U/L (15-37) Alanine Aminotransferase (ALT) 26 U/L (16-63) Alkaline Phosphatase 83 U/L (46-116) Total Protein 7.0 g/dL (6.4-8.2) Albumin 2.6 g/dL (3.4-5.0) L Albumin/Globulin Ratio 0.6 (1.0-1.7) L Valproic Acid Level 15 mcg/mL (50-100) L Valproic Acid Last Dose Date 11/07/2018 Valproic Acid Last Dose Time 2100 Glucose (Fingerstick) 89 mg/dL (70-99) Current Medications: I have reviewed the current psychotropics carefully including drug interactions. Risk benefit ratio favors no change other than as noted in my dictated progress note. 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
--- NOTE | 2018-11-09 01:17 | PN ---
DATE: 11/07/2018 PSYCHIATRIC PROGRESS NOTE This late entry 11/07/2018 covers elements not covered in my initial note. SUBJECTIVE: I met with the patient in the evening. The patient slept for 5-1/2 hours previous night. He has been anxious, restless, but redirects. REVIEW OF SYSTEMS: No CV, , pulmonary, eye, ENT system symptoms on review. Reliability poor. MENTAL STATUS EXAM: Oriented to himself. Insight, judgment, recent and remote memory, attention, concentration, fund of knowledge poor, consistent with his diagnosis mentioned in my initial note. PLAN: No change from initial note. He remains on Geodon, Effexor. We are adjusting the Depakote. We will check labs level on 11/08/2018. Adjust Depakote dosage thereafter. MAN Jeremy TARANGO MD DR: BHARATHI/niya JOB#: [id number] / [id number]
[2018-11-09] MEDS: BUDESONIDE 0.5 MG/2 ML NEBU NEB SCH ×2 (05:29→20:00)
[2018-11-09 05:59] VITALS: BP 124/55
[2018-11-09] MEDS: glipiZIDE 5 MG TABLET PO SCH (07:54)
[2018-11-09] MEDS: DIVALPROEX 125 MG CAP.SPRINK PO SCH ×3 (07:54→16:55)
[2018-11-09] MEDS: VENLAFAXINE 37.5 MG TABLET. PO SCH (07:54)
[2018-11-09] MEDS: LACTOBACILLUS RHAMNOSUS GG 1 CAPSULE. PO SCH ×2 (07:54→19:07)
[2018-11-09] MEDS: CHLORHEXIDINE 0.12% 15 ML MOUTHWASH. MM SCH (07:55)
[2018-11-09] MEDS: TAMSULOSIN 0.4 MG CAP.ER.24H. PO SCH (07:55)
[2018-11-09] MEDS: POLYETHYLENE GLYCOL 3350 17 GM PACKET. PO SCH (07:55)
[2018-11-09] MEDS: SODIUM CHLORIDE 0.65% NASAL SPRAY 45ML BOTTLE. NS SCH ×2 (07:56→19:10)
[2018-11-09] MEDS: DOXYCYCLINE HYCLATE 100 MG TABLET PO SCH ×2 (07:59→19:07)
[2018-11-09 09:43] VITALS: BP 169/74
[2018-11-09] MEDS: amLODIPine BESYLATE 10 MG TABLET PO SCH (09:45)
[2018-11-09 16:02] VITALS: BP 129/62
[2018-11-09 17:40] LABS: BILIRUBIN,URINE NEG (NEG); CLARITY,URINE HAZY; COLOR,URINE YELLOW; GLUCOSE,URINE NEG (NEG); UROBILINOGEN,URINE 0.2 mg/dL (0.2 mg/dL)
[2018-11-09 17:41] LABS: BACTERIA,URINE MOD /HPF (0-FEW); HYALINE CASTS, URINE OCC /HPF; NITRITE,URINE NEG (NEG); SQUAMOUS EPITHELIAL CELL,UR MOD /LPF
[2018-11-09] MEDS: ATORVASTATIN CALCIUM 20 MG TABLET PO SCH (19:08)
[2018-11-09] MEDS: ZIPRASIDONE 20 MG CAPSULE. PO SCH (19:08)
[2018-11-09] MEDS: LORazepam 0.5 MG TABLET PO PRN (20:15)
[2018-11-09] MEDS: traZODone 50 MG TABLET. PO SCH (20:29)
[2018-11-09] MEDS: traMADol 50 MG TABLET PO PRN (21:55)
--- NOTE | 2018-11-09 22:46 | PDOC ---
Exam Note: Geremias Note: Please also refer to the separate dictated note~for this date of service dictated separately.~Patient seen individually. Discussed the patient with Nursing staff reviewed the chart.~Reviewed interim history and current functioning. Reviewed vital signs,~Labs/ Radiology~and current medications noted below. Continue current treatment with the changes noted in the dictated addendum note Assessment: Vital Signs/I&O: Vital Signs Date Time Temp Pulse Resp B/P (MAP) Pulse Ox O2 Delivery O2 Flow Rate FiO2 11/09/18 21:55 18 95 11/09/18 16:02 97.8 82 129/62 (84) 11/09/18 09:43 Room Air I & O 11/08/18 11/08/18 11/09/18 15:00 23:00 07:00 Intake Total 720 ml 660 ml Balance 720 ml 660 ml Labs: Laboratory Tests Test 11/09/18 07:25 11/09/18 17:15 Glucose (Fingerstick) 87 mg/dL (70-99) Urine Collection Type Unknown Urine Color Yellow Urine Clarity Hazy Urine pH 7.0 Urine Specific [place] 1.020 Urine Protein 100 mg/dl (NEG-TRACE) Urine Glucose (UA) Neg mg/dL (NEG) Urine Ketones (Stick) Neg mg/dL (NEG) Urine Blood Mod (NEG) Urine Nitrite Neg (NEG) Urine Bilirubin Neg (NEG) Urine Urobilinogen Dipstick 0.2 mg/dL (0.2 mg/dL) Urine Leukocyte Esterase Mod (NEG) Urine RBC 6-10 /HPF (0-2) Urine WBC 11-20 /HPF (0-4) Urine Squamous Epithelial Cells Mod /LPF Urine Bacteria Mod /HPF (0-FEW) Urine Hyaline Casts Occ /HPF Current Medications: Meds: Current Medications Medications (Trade) Dose Ordered Sig/Hoda Route PRN Reason Start Time Stop Time Status Last Admin Dose Admin Trazodone HCl (Desyrel) 50 mg QHS PO 11/09/18 21:00 11/09/18 20:29 I have reviewed the current psychotropics carefully including drug interactions. Risk benefit ratio favors no change other than as noted in my dictated progress note. 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
[2018-11-09] MEDS ORDERED: traZODone 50 MG TABLET. PO PRN (23:30)
[2018-11-10 05:57] VITALS: BP 122/74
[2018-11-10] MEDS: glipiZIDE 5 MG TABLET PO SCH (08:05)
[2018-11-10] MEDS: SODIUM CHLORIDE 0.65% NASAL SPRAY 45ML BOTTLE. NS SCH ×2 (08:06→19:55)
[2018-11-10] MEDS: LACTOBACILLUS RHAMNOSUS GG 1 CAPSULE. PO SCH ×2 (08:06→19:29)
[2018-11-10] MEDS: DOXYCYCLINE HYCLATE 100 MG TABLET PO SCH ×2 (08:07→19:29)
[2018-11-10] MEDS: DIVALPROEX 125 MG CAP.SPRINK PO SCH ×3 (08:07→19:31)
[2018-11-10] MEDS: TAMSULOSIN 0.4 MG CAP.ER.24H. PO SCH (08:07)
[2018-11-10] MEDS: VENLAFAXINE 37.5 MG TABLET. PO SCH (08:07)
[2018-11-10] MEDS: CHLORHEXIDINE 0.12% 15 ML MOUTHWASH. MM SCH (08:08)
[2018-11-10] MEDS: POLYETHYLENE GLYCOL 3350 17 GM PACKET. PO SCH (08:08)
[2018-11-10] MEDS: amLODIPine BESYLATE 10 MG TABLET PO SCH (08:08)
[2018-11-10] MEDS: BUDESONIDE 0.5 MG/2 ML NEBU NEB SCH ×2 (11:45→20:00)
[2018-11-10 16:21] VITALS: BP 134/67
--- NOTE | 2018-11-10 19:02 | PN ---
DATE: 11/08/2018 PSYCHIATRIC PROGRESS NOTE This late entry 11/08/2018 covers elements not covered in my initial note. SUBJECTIVE: I met with the patient evening of 11/08/2018. The patient was also staffed at a treatment team meeting with the entire team morning of 11/08/2018 and the patient's son Andi attended this lengthy treatment team meeting. We reviewed the patient's history. I answered many questions by the son about non-psychotropic medication interventions, patient's diagnosis, drug interactions that may be causing some of his agitation. We will have a pharmacy consult to look at albuterol and other medications for the potential to worsen his behaviors and try and minimize this coordinated via Dr. Chapman. Appetite 100%, sleeping 7-8 hours, slept 7-1/2 hours previous night, agitated, aggressive, combative at times, compliant. REVIEW OF SYSTEMS: No CV, , pulmonary, eye, ENT system symptoms on review. Reliability poor. MENTAL STATUS EXAM: Oriented to himself. Insight, judgment, recent and remote memory, attention, concentration, fund of knowledge poor, consistent with his diagnosis mentioned in my initial note. PLAN: No change from initial note other than what is noted above. TERRELL TARANGO MD DR: BHARATHI/niya JOB#: [id number] / [id number]
[2018-11-10] MEDS: ZIPRASIDONE 20 MG CAPSULE. PO SCH (19:29)
[2018-11-10] MEDS: ATORVASTATIN CALCIUM 20 MG TABLET PO SCH (19:29)
[2018-11-10] MEDS: traZODone 50 MG TABLET. PO SCH (19:29)
--- NOTE | 2018-11-10 19:54 | PN ---
DATE: 11/09/2018 PSYCHIATRIC PROGRESS NOTE This late entry of 11/09/2018 covers the elements not covered in my initial note. SUBJECTIVE: I met with the patient evening of 11/09/2018. The patient slept 6 hours previous night. Remains confused, intermittently agitated, more so in the evening, banging on doors, anxious, restless, with marked mood lability. I met with him individually at length to address this. He responds positively when I talked about his son, Andi and my conversation with his son. REVIEW OF SYSTEMS: No CV, , pulmonary, eye, ENT system symptoms on review. Reliability poor. MENTAL STATUS EXAM: Oriented to himself. Insight, judgment, recent and remote memory, attention, concentration, fund of knowledge poor, consistent with his diagnosis mentioned in my initial note. PLAN: No change from initial note. Depakote has been initiated. We will check labs level. Continue Geodon, Effexor along with Zyprexa p.r.n. Pharmacy consult has been requested. We will defer recommendations to Dr. Chapman. TERRELL TARANGO MD DR: BHARATHI/niya JOB#: [id number] / [id number]
--- NOTE | 2018-11-10 22:14 | PDOC ---
Exam Note: Geremias Note: Please also refer to the separate dictated note~for this date of service dictated separately.~Patient seen individually. Discussed the patient with Nursing staff reviewed the chart.~Reviewed interim history and current functioning. Reviewed vital signs,~Labs/ Radiology~and current medications noted below. Continue current treatment with the changes noted in the dictated addendum note Assessment: Vital Signs/I&O: Vital Signs Date Time Temp Pulse Resp B/P (MAP) Pulse Ox O2 Delivery O2 Flow Rate FiO2 11/10/18 20:14 98 Room Air 11/10/18 16:21 98.4 83 20 134/67 (89) I & O 11/09/18 11/09/18 11/10/18 14:59 22:59 06:59 Intake Total 720 ml 240 ml 420 ml Balance 720 ml 240 ml 420 ml Labs: Laboratory Tests Test 11/10/18 07:13 Glucose (Fingerstick) 98 mg/dL (70-99) Current Medications: Meds: Current Medications Medications (Trade) Dose Ordered Sig/Hoda Route PRN Reason Start Time Stop Time Status Last Admin Dose Admin Divalproex Sodium (Depakote Sprinkles) 250 mg BID PO 11/10/18 21:00 11/10/18 19:31 I have reviewed the current psychotropics carefully including drug interactions. Risk benefit ratio favors no change other than as noted in my dictated progress note. 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
[2018-11-11 06:09] VITALS: BP 122/68
[2018-11-11] MEDS: LACTOBACILLUS RHAMNOSUS GG 1 CAPSULE. PO SCH ×2 (08:03→19:19)
[2018-11-11] MEDS: CHLORHEXIDINE 0.12% 15 ML MOUTHWASH. MM SCH (08:03)
[2018-11-11] MEDS: SODIUM CHLORIDE 0.65% NASAL SPRAY 45ML BOTTLE. NS SCH ×2 (08:03→19:19)
[2018-11-11] MEDS: glipiZIDE 5 MG TABLET PO SCH (08:03)
[2018-11-11 08:04] LABS: BASO # 0.1 x10^3/uL (0.0-0.2); BASO % 1 % (0-3); EOS # 0.1 x10^3/uL (0.0-0.7); EOS % 1 % (0-3); HEMATOCRIT 31.1 % (39.0-53.0); HEMOGLOBIN 10.1 g/dL (13.0-17.5); LYMPH % 15 % (24-48); MEAN CORPUSCULAR HEMOGLOBIN 30 pg (25-35); MEAN CORPUSCULAR HGB CONC 32 g/dL (31-37); MEAN CORPUSCULAR VOLUME 94 fL (79-100); MONO # 1.1 x10^3/uL (0.0-1.1); MONO % 9 % (0-9); NEUT # 9.6 x10^3uL (1.8-7.7); NEUT % 75 % (31-73); PLATELET COUNT 378 x10^3/uL (140-400); RED BLOOD COUNT 3.32 x10^6/uL (4.30-5.70); RED CELL DISTRIBUTION WIDTH 15.5 % (11.5-14.5); WHITE BLOOD COUNT 12.9 x10^3/uL (4.0-11.0)
[2018-11-11] MEDS: POLYETHYLENE GLYCOL 3350 17 GM PACKET. PO SCH (08:04)
[2018-11-11] MEDS: TAMSULOSIN 0.4 MG CAP.ER.24H. PO SCH (08:04)
[2018-11-11] MEDS: VENLAFAXINE 37.5 MG TABLET. PO SCH (08:04)
[2018-11-11] MEDS: DIVALPROEX 125 MG CAP.SPRINK PO SCH ×3 (08:04→19:19)
[2018-11-11] MEDS: DOXYCYCLINE HYCLATE 100 MG TABLET PO SCH ×2 (08:05→19:19)
[2018-11-11 08:27] LABS: ALBUMIN 2.6 g/dL (3.4-5.0); ALBUMIN/GLOBULIN RATIO 0.6 (1.0-1.7); CALCIUM 8.8 mg/dL (8.5-10.1); CREATININE 1.9 mg/dL (0.7-1.3); GFR 34.5; POTASSIUM 4.4 mmol/L (3.5-5.1); TOTAL BILIRUBIN 0.3 mg/dL (0.2-1.0); TOTAL PROTEIN 7.1 g/dL (6.4-8.2)
[2018-11-11] MEDS: amLODIPine BESYLATE 10 MG TABLET PO SCH (09:00)
[2018-11-11] MEDS: BUDESONIDE 0.5 MG/2 ML NEBU NEB SCH ×2 (10:33→19:39)
[2018-11-11 15:59] VITALS: BP 121/69
[2018-11-11] MEDS: LORazepam 0.5 MG TABLET PO PRN (17:42)
[2018-11-11] MEDS: ATORVASTATIN CALCIUM 20 MG TABLET PO SCH (19:19)
[2018-11-11] MEDS: traZODone 50 MG TABLET. PO SCH (19:19)
[2018-11-11] MEDS: ZIPRASIDONE 20 MG CAPSULE. PO SCH (19:19)
[2018-11-11] MEDS: traMADol 50 MG TABLET PO PRN (21:54)
--- NOTE | 2018-11-11 22:55 | PDOC ---
Exam Note: Geremias Note: Please also refer to the separate dictated note~for this date of service dictated separately.~Patient seen individually. Discussed the patient with Nursing staff reviewed the chart.~Reviewed interim history and current functioning. Reviewed vital signs,~Labs/ Radiology~and current medications noted below. Continue current treatment with the changes noted in the dictated addendum note Assessment: Vital Signs/I&O: Vital Signs Date Time Temp Pulse Resp B/P (MAP) Pulse Ox O2 Delivery O2 Flow Rate FiO2 11/11/18 21:54 98 11/11/18 15:59 97.6 93 20 121/69 (86) 11/11/18 10:34 Room Air I & O 11/10/18 11/10/18 11/11/18 15:00 23:00 07:00 Intake Total 600 ml 480 ml Balance 600 ml 480 ml Labs: Laboratory Tests Test 11/11/18 07:17 11/11/18 07:51 Glucose (Fingerstick) 126 mg/dL (70-99) H White Blood Count 12.9 x10^3/uL (4.0-11.0) H Red Blood Count 3.32 x10^6/uL (4.30-5.70) L Hemoglobin 10.1 g/dL (13.0-17.5) L Hematocrit 31.1 % (39.0-53.0) L Mean Corpuscular Volume 94 fL (79-100) Mean Corpuscular Hemoglobin 30 pg (25-35) Mean Corpuscular Hemoglobin Concent 32 g/dL (31-37) Red Cell Distribution Width 15.5 % (11.5-14.5) H Platelet Count 378 x10^3/uL (140-400) Neutrophils (%) (Auto) 75 % (31-73) H Lymphocytes (%) (Auto) 15 % (24-48) L Monocytes (%) (Auto) 9 % (0-9) Eosinophils (%) (Auto) 1 % (0-3) Basophils (%) (Auto) 1 % (0-3) Neutrophils # (Auto) 9.6 x10^3uL (1.8-7.7) H Lymphocytes # (Auto) 2.0 x10^3/uL (1.0-4.8) Monocytes # (Auto) 1.1 x10^3/uL (0.0-1.1) Eosinophils # (Auto) 0.1 x10^3/uL (0.0-0.7) Basophils # (Auto) 0.1 x10^3/uL (0.0-0.2) Sodium Level 142 mmol/L (136-145) Potassium Level 4.4 mmol/L (3.5-5.1) Chloride Level 105 mmol/L (98-107) Carbon Dioxide Level 29 mmol/L (21-32) Anion Gap 8 (6-14) Blood Urea Nitrogen 34 mg/dL (8-26) H Creatinine 1.9 mg/dL (0.7-1.3) H Estimated GFR (Cockcroft-Gault) 34.5 BUN/Creatinine Ratio 18 (6-20) Glucose Level 133 mg/dL (70-99) H Lactic Acid Level 0.8 mmol/L (0.4-2.0) Calcium Level 8.8 mg/dL (8.5-10.1) Total Bilirubin 0.3 mg/dL (0.2-1.0) Aspartate Amino Transferase (AST) 25 U/L (15-37) Alanine Aminotransferase (ALT) 27 U/L (16-63) Alkaline Phosphatase 87 U/L (46-116) Total Protein 7.1 g/dL (6.4-8.2) Albumin 2.6 g/dL (3.4-5.0) L Albumin/Globulin Ratio 0.6 (1.0-1.7) L Current Medications: Meds: Current Medications Medications (Trade) Dose Ordered Sig/Hoda Route PRN Reason Start Time Stop Time Status Last Admin Dose Admin Divalproex Sodium (Depakote Sprinkles) 125 mg 1300 PO 11/11/18 13:00 11/11/18 11:57 I have reviewed the current psychotropics carefully including drug interactions. Risk benefit ratio favors no change other than as noted in my dictated progress note. 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
[2018-11-12 05:51] VITALS: BP 136/58
[2018-11-12] MEDS: CHLORHEXIDINE 0.12% 15 ML MOUTHWASH. MM SCH (08:04)
[2018-11-12] MEDS: glipiZIDE 5 MG TABLET PO SCH (08:04)
[2018-11-12] MEDS: SODIUM CHLORIDE 0.65% NASAL SPRAY 45ML BOTTLE. NS SCH ×2 (08:04→22:12)
[2018-11-12] MEDS: LACTOBACILLUS RHAMNOSUS GG 1 CAPSULE. PO SCH ×2 (08:04→19:09)
[2018-11-12] MEDS: VENLAFAXINE 37.5 MG TABLET. PO SCH (08:05)
[2018-11-12] MEDS: DIVALPROEX 125 MG CAP.SPRINK PO SCH ×3 (08:05→19:09)
[2018-11-12] MEDS: TAMSULOSIN 0.4 MG CAP.ER.24H. PO SCH (08:05)
[2018-11-12] MEDS: POLYETHYLENE GLYCOL 3350 17 GM PACKET. PO SCH (08:06)
[2018-11-12] MEDS: amLODIPine BESYLATE 10 MG TABLET PO SCH (08:07)
[2018-11-12] MEDS: DOXYCYCLINE HYCLATE 100 MG TABLET PO SCH ×2 (08:07→19:09)
[2018-11-12] MEDS: BUDESONIDE 0.5 MG/2 ML NEBU NEB SCH ×2 (10:49→20:51)
[2018-11-12] MEDS: LORazepam 0.5 MG TABLET PO PRN ×3 (15:33→21:02)
[2018-11-12 16:21] VITALS: BP 125/69
[2018-11-12] MEDS: traZODone 50 MG TABLET. PO SCH (19:09)
[2018-11-12] MEDS: ATORVASTATIN CALCIUM 20 MG TABLET PO SCH (19:10)
[2018-11-12] MEDS: ZIPRASIDONE 20 MG CAPSULE. PO SCH (19:10)
[2018-11-12] MEDS: traMADol 50 MG TABLET PO PRN (22:05)
--- NOTE | 2018-11-12 22:07 | PN ---
DATE: 11/10/2018 PSYCHIATRIC PROGRESS NOTE This late entry 11/10/2018 covers elements not covered in my initial note. SUBJECTIVE: The patient slept 5-3/4 hours previous night. He has been less aggressive. UA has reflux to culture. REVIEW OF SYSTEMS: No CV, , pulmonary, eye, ENT system symptoms on review. Reliability poor. MENTAL STATUS EXAM: Oriented to himself. Insight, judgment, recent and remote memory, attention, concentration, fund of knowledge poor, consistent with his diagnosis mentioned in my initial note. PLAN: Valproic acid level was 15, on Depakote Sprinkle 125 mg t.i.d. We will increase to 250 b.i.d., 125 mg daily. Check CBC, CMP, valproic acid level in 3 days. Await urine culture. Rest unchanged for now. MAN Jeremy TARANGO MD DR: BHARATHI/niya JOB#: [id number] / [id number]
--- NOTE | 2018-11-12 22:13 | PN ---
DATE: 11/12/2018 PSYCHIATRIC PROGRESS NOTE This late entry 11/11/2018 covers elements not covered in my initial note. SUBJECTIVE: I met with the patient in the evening of 11/11/2018. The patient slept 4-1/2 hours previous night, remains confused, has not had to go to the [address] [place] [address] to reduce stimuli, had a good day, agitated in the evening. Received Ativan and Zyprexa. He got into a confrontation with another delusional demented psychotic patient. Did redirect. REVIEW OF SYSTEMS: No CV, , pulmonary, eye, ENT system symptoms on review. MENTAL STATUS EXAM: Oriented to himself. Insight, judgment, recent and remote memory, attention, concentration, fund of knowledge poor, consistent with his diagnosis mentioned in my initial note. PLAN: No change from initial note. MAN Jeremy TARANGO MD DR: BHARATHI/niya JOB#: [id number] / [id number]
--- NOTE | 2018-11-12 22:37 | PDOC ---
Exam Note: Geremias Note: Please also refer to the separate dictated note~for this date of service dictated separately.~Patient seen individually. Discussed the patient with Nursing staff reviewed the chart.~Reviewed interim history and current functioning. Reviewed vital signs,~Labs/ Radiology~and current medications noted below. Continue current treatment with the changes noted in the dictated addendum note Assessment: Vital Signs/I&O: Vital Signs Date Time Temp Pulse Resp B/P (MAP) Pulse Ox O2 Delivery O2 Flow Rate FiO2 11/12/18 22:05 18 94 11/12/18 20:51 Room Air 11/12/18 16:21 98.0 80 125/69 (87) I & O 11/11/18 11/11/18 11/12/18 14:59 22:59 06:59 Intake Total 600 ml 480 ml 240 ml Balance 600 ml 480 ml 240 ml Labs: Laboratory Tests Test 11/12/18 07:23 Glucose (Fingerstick) 88 mg/dL (70-99) Current Medications: I have reviewed the current psychotropics carefully including drug interactions. Risk benefit ratio favors no change other than as noted in my dictated progress note. 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
[2018-11-13] MEDS: BUDESONIDE 0.5 MG/2 ML NEBU NEB SCH ×2 (05:14→22:28)
[2018-11-13 05:49] VITALS: BP 155/77
[2018-11-13 06:55] LABS: BASO # 0.1 x10^3/uL (0.0-0.2); BASO % 1 % (0-3); EOS # 0.3 x10^3/uL (0.0-0.7); EOS % 2 % (0-3); HEMATOCRIT 29.1 % (39.0-53.0); HEMOGLOBIN 9.6 g/dL (13.0-17.5); LYMPH # 2.4 x10^3/uL (1.0-4.8); LYMPH % 22 % (24-48); MEAN CORPUSCULAR HEMOGLOBIN 31 pg (25-35); MEAN CORPUSCULAR HGB CONC 33 g/dL (31-37); MEAN CORPUSCULAR VOLUME 93 fL (79-100); MONO # 1.3 x10^3/uL (0.0-1.1); MONO % 12 % (0-9); NEUT % 64 % (31-73); PLATELET COUNT 324 x10^3/uL (140-400); RED BLOOD COUNT 3.12 x10^6/uL (4.30-5.70); RED CELL DISTRIBUTION WIDTH 15.4 % (11.5-14.5); WHITE BLOOD COUNT 10.9 x10^3/uL (4.0-11.0)
[2018-11-13 07:08] LABS: ALBUMIN 2.2 g/dL (3.4-5.0); ALBUMIN/GLOBULIN RATIO 0.5 (1.0-1.7); ALK PHOS 72 U/L (46-116); ALT (SGPT) 22 U/L (16-63); ANION GAP 8 (6-14); AST (SGOT) 21 U/L (15-37); BLOOD UREA NITROGEN 33 mg/dL (8-26); BUN/CREATININE RATIO 19 (6-20); CALCIUM 8.5 mg/dL (8.5-10.1); CARBON DIOXIDE 29 mmol/L (21-32); CHLORIDE 109 mmol/L (98-107); CREATININE 1.7 mg/dL (0.7-1.3); GFR 39.3; GLUCOSE 87 mg/dL (70-99); POTASSIUM 3.9 mmol/L (3.5-5.1); SODIUM 146 mmol/L (136-145); TOTAL BILIRUBIN 0.2 mg/dL (0.2-1.0); TOTAL PROTEIN 6.3 g/dL (6.4-8.2)
[2018-11-13 07:09] LABS: VAL ACID 33 mcg/mL (50-100)
[2018-11-13] MEDS: CHLORHEXIDINE 0.12% 15 ML MOUTHWASH. MM SCH (07:44)
[2018-11-13] MEDS: glipiZIDE 5 MG TABLET PO SCH (07:44)
[2018-11-13] MEDS: SODIUM CHLORIDE 0.65% NASAL SPRAY 45ML BOTTLE. NS SCH ×2 (07:44→21:00)
[2018-11-13] MEDS: TAMSULOSIN 0.4 MG CAP.ER.24H. PO SCH (07:45)
[2018-11-13] MEDS: DIVALPROEX 125 MG CAP.SPRINK PO SCH ×3 (07:45→19:24)
[2018-11-13] MEDS: LACTOBACILLUS RHAMNOSUS GG 1 CAPSULE. PO SCH ×2 (07:45→19:23)
[2018-11-13] MEDS: POLYETHYLENE GLYCOL 3350 17 GM PACKET. PO SCH (07:45)
[2018-11-13] MEDS: VENLAFAXINE 37.5 MG TABLET. PO SCH (07:45)
[2018-11-13] MEDS: amLODIPine BESYLATE 10 MG TABLET PO SCH (07:46)
[2018-11-13] MEDS: DOXYCYCLINE HYCLATE 100 MG TABLET PO SCH (07:46)
[2018-11-13] MEDS: ZIPRASIDONE 20 MG CAPSULE. PO SCH ×2 (13:41→19:24)
[2018-11-13 15:52] VITALS: BP 131/76
[2018-11-13] MEDS: traZODone 50 MG TABLET. PO SCH (19:24)
[2018-11-13] MEDS: ATORVASTATIN CALCIUM 20 MG TABLET PO SCH (19:24)
--- NOTE | 2018-11-13 22:34 | PDOC ---
Exam Note: Geremias Note: Please also refer to the separate dictated note~for this date of service dictated separately.~Patient seen individually. Discussed the patient with Nursing staff reviewed the chart.~Reviewed interim history and current functioning. Reviewed vital signs,~Labs/ Radiology~and current medications noted below. Continue current treatment with the changes noted in the dictated addendum note Assessment: Vital Signs/I&O: Vital Signs Date Time Temp Pulse Resp B/P (MAP) Pulse Ox O2 Delivery O2 Flow Rate FiO2 11/13/18 15:52 98.0 89 17 131/76 (94) 90 11/13/18 05:15 Room Air I & O 11/12/18 11/12/18 11/13/18 14:59 22:59 06:59 Intake Total 960 ml 240 ml 240 ml Balance 960 ml 240 ml 240 ml Labs: Laboratory Tests Test 11/13/18 06:39 11/13/18 07:33 White Blood Count 10.9 x10^3/uL (4.0-11.0) Red Blood Count 3.12 x10^6/uL (4.30-5.70) L Hemoglobin 9.6 g/dL (13.0-17.5) L Hematocrit 29.1 % (39.0-53.0) L Mean Corpuscular Volume 93 fL (79-100) Mean Corpuscular Hemoglobin 31 pg (25-35) Mean Corpuscular Hemoglobin Concent 33 g/dL (31-37) Red Cell Distribution Width 15.4 % (11.5-14.5) H Platelet Count 324 x10^3/uL (140-400) Neutrophils (%) (Auto) 64 % (31-73) Lymphocytes (%) (Auto) 22 % (24-48) L Monocytes (%) (Auto) 12 % (0-9) H Eosinophils (%) (Auto) 2 % (0-3) Basophils (%) (Auto) 1 % (0-3) Neutrophils # (Auto) 7.0 x10^3uL (1.8-7.7) Lymphocytes # (Auto) 2.4 x10^3/uL (1.0-4.8) Monocytes # (Auto) 1.3 x10^3/uL (0.0-1.1) H Eosinophils # (Auto) 0.3 x10^3/uL (0.0-0.7) Basophils # (Auto) 0.1 x10^3/uL (0.0-0.2) Sodium Level 146 mmol/L (136-145) H Potassium Level 3.9 mmol/L (3.5-5.1) Chloride Level 109 mmol/L (98-107) H Carbon Dioxide Level 29 mmol/L (21-32) Anion Gap 8 (6-14) Blood Urea Nitrogen 33 mg/dL (8-26) H Creatinine 1.7 mg/dL (0.7-1.3) H Estimated GFR (Cockcroft-Gault) 39.3 BUN/Creatinine Ratio 19 (6-20) Glucose Level 87 mg/dL (70-99) Calcium Level 8.5 mg/dL (8.5-10.1) Total Bilirubin 0.2 mg/dL (0.2-1.0) Aspartate Amino Transferase (AST) 21 U/L (15-37) Alanine Aminotransferase (ALT) 22 U/L (16-63) Alkaline Phosphatase 72 U/L (46-116) Total Protein 6.3 g/dL (6.4-8.2) L Albumin 2.2 g/dL (3.4-5.0) L Albumin/Globulin Ratio 0.5 (1.0-1.7) L Valproic Acid Level 33 mcg/mL (50-100) L Valproic Acid Last Dose Date 11/12/18 Valproic Acid Last Dose Time 2100 Glucose (Fingerstick) 118 mg/dL (70-99) H Current Medications: Meds: Current Medications Medications (Trade) Dose Ordered Sig/Hoda Route PRN Reason Start Time Stop Time Status Last Admin Dose Admin Ziprasidone (Geodon) 20 mg 1500 PO 11/13/18 15:00 11/13/18 13:41 I have reviewed the current psychotropics carefully including drug interactions. Risk benefit ratio favors no change other than as noted in my dictated progress note. 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
--- NOTE | 2018-11-13 23:07 | PN ---
DATE: 11/12/2018 PSYCHIATRIC PROGRESS NOTE This late entry 11/12/2018 covers elements not covered in my initial note. SUBJECTIVE: I met with the patient evening of 11/12/2018. The patient slept 7 hours previous night. He has been confused, intermittently agitated with others, especially with one of the other demented patients who has been aggressive. REVIEW OF SYSTEMS: No CV, , pulmonary, eye, ENT system symptoms on review. Reliability poor. MENTAL STATUS EXAMINATION: Oriented to himself. Insight, judgment, recent and remote memory, attention, concentration, fund of knowledge poor, consistent with his diagnosis mentioned in my initial note. PLAN: Start Geodon 20 mg at 3 p.m., continue 60 mg at bedtime. Check EKG to make sure QTC is unremarkable. Maintain Effexor along with Depakote. Repeat labs level on the Depakote. Continue trazodone along with Ativan p.r.n. MAN Jeremy TARANGO MD DR: BHARATHI/niya JOB#: [id number] / [id number]
[2018-11-14 05:33] VITALS: BP 149/71
[2018-11-14] MEDS: BUDESONIDE 0.5 MG/2 ML NEBU NEB SCH ×2 (05:59→21:25)
[2018-11-14] MEDS: VENLAFAXINE 37.5 MG TABLET. PO SCH (07:26)
[2018-11-14] MEDS: glipiZIDE 5 MG TABLET PO SCH (07:27)
[2018-11-14] MEDS: TAMSULOSIN 0.4 MG CAP.ER.24H. PO SCH (07:27)
[2018-11-14] MEDS: DIVALPROEX 125 MG CAP.SPRINK PO SCH ×3 (07:27→19:31)
[2018-11-14] MEDS: SODIUM CHLORIDE 0.65% NASAL SPRAY 45ML BOTTLE. NS SCH ×2 (07:28→19:30)
[2018-11-14] MEDS: amLODIPine BESYLATE 10 MG TABLET PO SCH (07:28)
[2018-11-14] MEDS: LACTOBACILLUS RHAMNOSUS GG 1 CAPSULE. PO SCH ×2 (07:28→19:30)
[2018-11-14] MEDS: CHLORHEXIDINE 0.12% 15 ML MOUTHWASH. MM SCH (07:28)
[2018-11-14] MEDS: POLYETHYLENE GLYCOL 3350 17 GM PACKET. PO SCH (07:29)
[2018-11-14] MEDS: ZIPRASIDONE 20 MG CAPSULE. PO SCH ×2 (15:48→19:30)
[2018-11-14 15:52] VITALS: BP 130/67
[2018-11-14] MEDS: traZODone 50 MG TABLET. PO SCH (19:30)
[2018-11-14] MEDS: ATORVASTATIN CALCIUM 20 MG TABLET PO SCH (19:30)
[2018-11-14] MEDS: LORazepam 0.5 MG TABLET PO PRN (19:38)
--- NOTE | 2018-11-14 21:11 | PN ---
DATE: 11/13/2018 PSYCHIATRIC PROGRESS NOTE This is a late entry 11/13/2018, covers the elements not covered in my initial note. SUBJECTIVE: I met with the patient in the evening. The patient slept 5-3/4 hours previous night. EKG, QT corrected interval is unremarkable. He gets intermittently agitated and then redirects. REVIEW OF SYSTEMS: No CV, GI, , eye, ENT system symptoms on review. MENTAL STATUS EXAM: Oriented to himself. Insight, judgment, recent and remote memory, attention, concentration, fund of knowledge poor, consistent with his diagnosis mentioned in my initial note. PLAN: No change from initial note. We have added a dosage of Geodon and made other adjustments. We may adjust the Depakote further as well after a day's observation. MAN Jeremy TARANGO MD DR: BHARATHI/niya JOB#: [id number] / [id number]
--- NOTE | 2018-11-14 22:13 | PDOC ---
Exam Note: Geremias Note: Please also refer to the separate dictated note~for this date of service dictated separately.~Patient seen individually. Discussed the patient with Nursing staff reviewed the chart.~Reviewed interim history and current functioning. Reviewed vital signs,~Labs/ Radiology~and current medications noted below. Continue current treatment with the changes noted in the dictated addendum note Assessment: Vital Signs/I&O: Vital Signs Date Time Temp Pulse Resp B/P (MAP) Pulse Ox O2 Delivery O2 Flow Rate FiO2 11/14/18 21:26 Room Air 11/14/18 15:52 98.1 78 16 130/67 (88) 97 I & O 11/13/18 11/13/18 11/14/18 14:59 22:59 06:59 Intake Total 180 ml 440 ml Balance 180 ml 440 ml Labs: Laboratory Tests Test 11/14/18 07:24 Glucose (Fingerstick) 102 mg/dL (70-99) H Current Medications: I have reviewed the current psychotropics carefully including drug interactions. Risk benefit ratio favors no change other than as noted in my dictated progress note. 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
[2018-11-15] MEDS: BUDESONIDE 0.5 MG/2 ML NEBU NEB SCH ×2 (05:36→20:53)
[2018-11-15 06:32] VITALS: BP 127/74
[2018-11-15] MEDS: glipiZIDE 5 MG TABLET PO SCH (07:43)
[2018-11-15] MEDS: VENLAFAXINE 37.5 MG TABLET. PO SCH (07:43)
[2018-11-15] MEDS: TAMSULOSIN 0.4 MG CAP.ER.24H. PO SCH (07:43)
[2018-11-15] MEDS: DIVALPROEX 125 MG CAP.SPRINK PO SCH ×3 (07:43→19:33)
[2018-11-15] MEDS: LACTOBACILLUS RHAMNOSUS GG 1 CAPSULE. PO SCH ×2 (07:43→19:33)
[2018-11-15] MEDS: POLYETHYLENE GLYCOL 3350 17 GM PACKET. PO SCH (07:43)
[2018-11-15] MEDS: SODIUM CHLORIDE 0.65% NASAL SPRAY 45ML BOTTLE. NS SCH ×2 (07:44→19:34)
[2018-11-15] MEDS: CHLORHEXIDINE 0.12% 15 ML MOUTHWASH. MM SCH (07:44)
[2018-11-15] MEDS: amLODIPine BESYLATE 10 MG TABLET PO SCH (07:44)
[2018-11-15] MEDS: ZIPRASIDONE 20 MG CAPSULE. PO SCH ×2 (14:06→19:34)
[2018-11-15 15:33] VITALS: BP 137/69
[2018-11-15] MEDS: LORazepam 0.5 MG TABLET PO PRN (16:53)
[2018-11-15] MEDS: traZODone 50 MG TABLET. PO SCH (19:33)
[2018-11-15] MEDS: ATORVASTATIN CALCIUM 20 MG TABLET PO SCH (19:34)
--- NOTE | 2018-11-15 22:20 | PDOC ---
Exam Note: Geremias Note: Please also refer to the separate dictated note~for this date of service dictated separately.~Patient seen individually. Discussed the patient with Nursing staff reviewed the chart.~Reviewed interim history and current functioning. Reviewed vital signs,~Labs/ Radiology~and current medications noted below. Continue current treatment with the changes noted in the dictated addendum note Assessment: Vital Signs/I&O: Vital Signs Date Time Temp Pulse Resp B/P (MAP) Pulse Ox O2 Delivery O2 Flow Rate FiO2 11/15/18 20:53 96 Room Air 11/15/18 15:33 97.6 85 20 137/69 (91) I & O 11/14/18 11/14/18 11/15/18 15:00 23:00 07:00 Intake Total 720 ml 600 ml 240 ml Balance 720 ml 600 ml 240 ml Labs: Laboratory Tests Test 11/15/18 07:28 Glucose (Fingerstick) 105 mg/dL (70-99) H Current Medications: Meds: Current Medications Medications (Trade) Dose Ordered Sig/Hoda Route PRN Reason Start Time Stop Time Status Last Admin Dose Admin Divalproex Sodium (Depakote Sprinkles) 250 mg TID PO 11/15/18 21:00 11/15/18 19:33 I have reviewed the current psychotropics carefully including drug interactions. Risk benefit ratio favors no change other than as noted in my dictated progress note. 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
--- NOTE | 2018-11-16 01:05 | PN ---
DATE: 11/14/2018 PSYCHIATRIC PROGRESS NOTE This is a late entry 11/14/2018, covers the elements not covered in my initial note. SUBJECTIVE: I met with the patient in the evening of 11/14/2018. The patient slept 5-1/2 hours previous evening. He is compliant with his medications crushed. He is behaviorally better, less impulsive as opposed to a couple of days back. REVIEW OF SYSTEMS: No CV, , pulmonary, eye, ENT system symptoms on review. Reliability is poor. MENTAL STATUS EXAM: Oriented to himself. Insight, judgment, recent and remote memory, attention, concentration, fund of knowledge poor, consistent with his diagnosis mentioned in my initial note. PLAN: No change from initial note. MAN Jeremy TARANGO MD DR: BHARATHI/niya JOB#: [id number] / [id number]
[2018-11-16 06:17] VITALS: BP 126/75
[2018-11-16] MEDS: LACTOBACILLUS RHAMNOSUS GG 1 CAPSULE. PO SCH ×2 (07:49→19:42)
[2018-11-16] MEDS: VENLAFAXINE 37.5 MG TABLET. PO SCH (07:49)
[2018-11-16] MEDS: glipiZIDE 5 MG TABLET PO SCH (07:50)
[2018-11-16] MEDS: TAMSULOSIN 0.4 MG CAP.ER.24H. PO SCH (07:50)
[2018-11-16] MEDS: DIVALPROEX 125 MG CAP.SPRINK PO SCH ×3 (07:50→19:44)
[2018-11-16] MEDS: POLYETHYLENE GLYCOL 3350 17 GM PACKET. PO SCH (07:51)
[2018-11-16] MEDS: CHLORHEXIDINE 0.12% 15 ML MOUTHWASH. MM SCH ×2 (07:51→07:55)
[2018-11-16] MEDS: amLODIPine BESYLATE 10 MG TABLET PO SCH (07:52)
[2018-11-16] MEDS: SODIUM CHLORIDE 0.65% NASAL SPRAY 45ML BOTTLE. NS SCH ×2 (07:53→19:44)
[2018-11-16] MEDS: BUDESONIDE 0.5 MG/2 ML NEBU NEB SCH ×3 (07:54→20:01)
[2018-11-16] MEDS: LORazepam 0.5 MG TABLET PO PRN ×2 (12:03→15:32)
[2018-11-16] MEDS: ZIPRASIDONE 20 MG CAPSULE. PO SCH ×2 (14:17→19:43)
[2018-11-16] MEDS: traZODone 50 MG TABLET. PO SCH (19:42)
[2018-11-16] MEDS: ATORVASTATIN CALCIUM 20 MG TABLET PO SCH (19:44)
[2018-11-16] MEDS: traMADol 50 MG TABLET PO PRN (21:17)
[2018-11-17 06:21] VITALS: BP 109/62
[2018-11-17] MEDS: TAMSULOSIN 0.4 MG CAP.ER.24H. PO SCH (08:05)
[2018-11-17] MEDS: DIVALPROEX 125 MG CAP.SPRINK PO SCH ×3 (08:05→19:55)
[2018-11-17] MEDS: amLODIPine BESYLATE 10 MG TABLET PO SCH (08:05)
[2018-11-17] MEDS: glipiZIDE 5 MG TABLET PO SCH (08:06)
[2018-11-17] MEDS: LACTOBACILLUS RHAMNOSUS GG 1 CAPSULE. PO SCH ×2 (08:06→19:54)
[2018-11-17] MEDS: VENLAFAXINE 37.5 MG TABLET. PO SCH (08:06)
[2018-11-17] MEDS: CHLORHEXIDINE 0.12% 15 ML MOUTHWASH. MM SCH (08:07)
[2018-11-17] MEDS: POLYETHYLENE GLYCOL 3350 17 GM PACKET. PO SCH (08:07)
[2018-11-17] MEDS: SODIUM CHLORIDE 0.65% NASAL SPRAY 45ML BOTTLE. NS SCH ×2 (08:07→21:00)
[2018-11-17] MEDS: BUDESONIDE 0.5 MG/2 ML NEBU NEB SCH ×2 (10:11→20:00)
--- NOTE | 2018-11-17 10:16 | PDOC ---
Exam Note: Geremias Note: Late entry for DOS 11/16/2018. Please also refer to the separate dictated note~for this date of service dictated separately.~Patient seen individually. Discussed the patient with Nursing staff reviewed the chart.~Reviewed interim history and current functioning. Reviewed vital signs,~Labs/ Radiology~and current medications noted below. Continue current treatment with the changes noted in the dictated addendum note Assessment: Vital Signs/I&O: Vital Signs Date Time Temp Pulse Resp B/P (MAP) Pulse Ox O2 Delivery O2 Flow Rate FiO2 11/17/18 10:12 97 Room Air 11/17/18 08:05 96 109/62 11/17/18 06:21 98.2 14 I & O 11/16/18 11/16/18 11/17/18 14:59 22:59 06:59 Intake Total 480 ml 240 ml 240 ml Balance 480 ml 240 ml 240 ml Labs: Laboratory Tests Test 11/17/18 07:53 Glucose (Fingerstick) 87 mg/dL (70-99) Current Medications: I have reviewed the current psychotropics carefully including drug interactions. Risk benefit ratio favors no change other than as noted in my dictated progress note. 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
--- NOTE | 2018-11-17 12:02 | EKG ---
[facility] [address] [place] [address] Test Date: 2018-11-13 Test Time: 00:00:00 Pat Name: MARY STEVENS Department: Room: [address] [place] [address] Gender: M [employer]: : 1940 Requested By: TERRELL TARANGO Order Number: [id number] Reading MD: Measurements Intervals [place] Rate: P: ND: QRS: QRSD: T: QT: QTc: Interpretive Statements
[2018-11-17] MEDS: LORazepam 0.5 MG TABLET PO PRN (13:18)
[2018-11-17] MEDS: ZIPRASIDONE 20 MG CAPSULE. PO SCH ×2 (13:20→19:54)
[2018-11-17 15:57] VITALS: BP 107/61
[2018-11-17] MEDS: traZODone 50 MG TABLET. PO SCH (19:54)
[2018-11-17] MEDS: ATORVASTATIN CALCIUM 20 MG TABLET PO SCH (19:55)
--- NOTE | 2018-11-17 22:22 | PDOC ---
Exam Note: Geremias Note: Please also refer to the separate dictated note~for this date of service dictated separately.~Patient seen individually. Discussed the patient with Nursing staff reviewed the chart.~Reviewed interim history and current functioning. Reviewed vital signs,~Labs/ Radiology~and current medications noted below. Continue current treatment with the changes noted in the dictated addendum note Assessment: Vital Signs/I&O: Vital Signs Date Time Temp Pulse Resp B/P (MAP) Pulse Ox O2 Delivery O2 Flow Rate FiO2 11/17/18 20:42 95 Room Air 11/17/18 15:57 98.0 92 19 107/61 (76) I & O 11/16/18 11/16/18 11/17/18 14:59 22:59 06:59 Intake Total 480 ml 240 ml 240 ml Balance 480 ml 240 ml 240 ml Labs: Laboratory Tests Test 11/17/18 07:53 Glucose (Fingerstick) 87 mg/dL (70-99) Current Medications: I have reviewed the current psychotropics carefully including drug interactions. Risk benefit ratio favors no change other than as noted in my dictated progress note. 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
--- NOTE | 2018-11-17 22:32 | PN ---
DATE: 11/16/2018 PSYCHIATRIC PROGRESS NOTE This late entry 11/16/2018 covers elements not covered in my initial note. SUBJECTIVE: I met with the patient in the evening of 11/16/2018 and staffed at a treatment team meeting with the entire team and the patient's son, Andi, attended. Son still at questions about albuterol, which he feels could be worsening the patient's agitation. This is p.r.n. and he has not received it since admission, but I did confer with Dr. Chapman and we will take it off his list. The patient slept 7-1/4 hours. REVIEW OF SYSTEMS: No CV, , pulmonary, eye, ENT system symptoms on review. Reliability poor. MENTAL STATUS EXAM: Oriented to himself. Insight, judgment, recent and remote memory, attention, concentration, fund of knowledge poor, consistent with his diagnosis mentioned in my initial note. PLAN: No change from initial note. TERRELL TARANGO MD DR: BHARATHI/niya JOB#: [id number] / [id number]
--- NOTE | 2018-11-18 02:31 | PN ---
DATE: 11/15/2018 PSYCHIATRIC PROGRESS NOTE This late entry 11/15/2018 covers elements not covered in my initial note. SUBJECTIVE: I met with the patient in the evening of 11/15/2018. The patient slept 5-3/4 hours previous night. Overall, the patient had a better day, takes meds and chocolate ice cream. At one time, he was joking with the staff member and told her that he wanted to slit her throat. Staff is quite clear that this is more ingestion, he was not aggressive. He slept 5-3/4 hours. Valproic acid level 33 on the . REVIEW OF SYSTEMS: No CV, , pulmonary, eye, ENT system symptoms on review. Reliability poor. MENTAL STATUS EXAM: Oriented to himself. Insight, judgment, recent and remote memory, attention, concentration, fund of knowledge poor, consistent with his diagnosis mentioned in my initial note. PLAN: Valproic acid level is subtherapeutic. We will increase the Depakote to 250 mg 3 times a day from his current dosage 250 b.i.d. Check CBC, CMP, valproic acid level in 3 days. Rest unchanged from initial note. MAN Jeremy TARANGO MD DR: BHARATHI/niya JOB#: [id number] / [id number]
[2018-11-18 05:57] VITALS: BP 138/82
[2018-11-18] MEDS: BUDESONIDE 0.5 MG/2 ML NEBU NEB SCH ×3 (08:00→20:45)
[2018-11-18] MEDS: CHLORHEXIDINE 0.12% 15 ML MOUTHWASH. MM SCH (08:51)
[2018-11-18] MEDS: SODIUM CHLORIDE 0.65% NASAL SPRAY 45ML BOTTLE. NS SCH ×2 (08:52→20:01)
[2018-11-18] MEDS: POLYETHYLENE GLYCOL 3350 17 GM PACKET. PO SCH (09:42)
[2018-11-18] MEDS: VENLAFAXINE 37.5 MG TABLET. PO SCH (09:42)
[2018-11-18] MEDS: glipiZIDE 5 MG TABLET PO SCH (09:42)
[2018-11-18] MEDS: amLODIPine BESYLATE 10 MG TABLET PO SCH (09:42)
[2018-11-18] MEDS: TAMSULOSIN 0.4 MG CAP.ER.24H. PO SCH (09:42)
[2018-11-18] MEDS: LACTOBACILLUS RHAMNOSUS GG 1 CAPSULE. PO SCH ×2 (09:42→20:00)
[2018-11-18] MEDS: DIVALPROEX 125 MG CAP.SPRINK PO SCH ×3 (09:42→20:01)
[2018-11-18] MEDS ORDERED: levoFLOXacin 500 MG TABLET PO SCH (11:00)
[2018-11-18] MEDS ORDERED: levoFLOXacin 500 MG TABLET PO ONE (11:00)
[2018-11-18] MEDS: ZIPRASIDONE 20 MG CAPSULE. PO SCH ×2 (13:36→20:00)
[2018-11-18 15:40] VITALS: BP 122/71
--- NOTE | 2018-11-18 19:21 | PN ---
DATE: 11/18/2018 ATTENDING PHYSICIAN: Dr. Cabello. SUBJECTIVE: The patient is confused, agitated, refused to be examined until we persuaded him. He has some irritation at the suprapubic catheter site. This is a 78-year-old gentleman who has been on the behavioral unit since 09/30. He had dementia, confrontational behavior, aggressive behavior and behavioral disturbance. PAST MEDICAL HISTORY: Significant for chronic cystitis, hydroureter, benign prostatic hypertrophy, indwelling suprapubic catheter, type 2 diabetes, chronic pain syndrome, cardiomyopathy and COPD. OBJECTIVE: VITAL SIGNS: Show that he is afebrile, blood pressure is 138/82 mmHg, pulse of 75 and regular. LUNGS: Fairly good breath sound with shallow respirations. HEART: Tones were regular. ABDOMEN: Obese. No organomegaly. I did examine his suprapubic area. There is a very small size approximately 1 cm of slight redness, no induration, some purulent drainage at the catheter site, but he pulls on this and irritates it. EXTREMITIES: Show chronic edema. NEUROLOGIC: Confused. He has a narrow-based gait and walks with a walker. ASSESSMENT: 1. A 78-year-old gentleman with slight irritation and inflammation of the suprapubic catheter site. 2. Dementia with behavioral problems. 3. Chronic obstructive pulmonary disease. 4. Cardiomyopathy. RECOMMENDATIONS: 1. THE PATIENT IS ALLERGIC TO CEFAZOLIN. I recommended the Levaquin 500 mg p.o. daily for 5 days. 2. Continue other home meds. 3. We should gladly follow along during his inpatient psychiatric stay. Thank you again for asking me to see this patient for consultation. MARKELL JOY MD DR: GENOVEVA/niya JOB#: [id number] / [id number] TERRELL Lombardo MD
[2018-11-18] MEDS: traZODone 50 MG TABLET. PO SCH (20:00)
[2018-11-18] MEDS: ATORVASTATIN CALCIUM 20 MG TABLET PO SCH (20:01)
--- NOTE | 2018-11-18 22:47 | PDOC ---
Exam Note: Geremias Note: Please also refer to the separate dictated note~for this date of service dictated separately.~Patient seen individually. Discussed the patient with Nursing staff reviewed the chart.~Reviewed interim history and current functioning. Reviewed vital signs,~Labs/ Radiology~and current medications noted below. Continue current treatment with the changes noted in the dictated addendum note Assessment: Vital Signs/I&O: Vital Signs Date Time Temp Pulse Resp B/P (MAP) Pulse Ox O2 Delivery O2 Flow Rate FiO2 11/18/18 15:40 97.3 86 20 122/71 (88) 96 Room Air I & O 11/17/18 11/17/18 11/18/18 14:59 22:59 06:59 Intake Total 720 ml 480 ml Balance 720 ml 480 ml Labs: Laboratory Tests Test 11/18/18 07:17 Glucose (Fingerstick) 75 mg/dL (70-99) Current Medications: Meds: Current Medications Medications (Trade) Dose Ordered Sig/Hoda Route PRN Reason Start Time Stop Time Status Last Admin Dose Admin Levofloxacin (Levaquin) 500 mg 1X ONCE PO 11/18/18 11:00 11/18/18 11:01 DC 11/18/18 11:55 I have reviewed the current psychotropics carefully including drug interactions. Risk benefit ratio favors no change other than as noted in my dictated progress note. Diagnosis: Problems: (1) Mood disorder (2) Anxiety disorder (3) Anxiety disorder (4) Dementia, vascular, with delusions (5) Dementia, vascular, with depression (6) Dementia in Alzheimer's disease with delusions (7) Dementia in Alzheimer's disease with depression (8) Impulse control disorder TERRELL TARANGO MD Nov 18, 2018 22:47
[2018-11-19] MEDS: BUDESONIDE 0.5 MG/2 ML NEBU NEB SCH (05:32)
[2018-11-19 05:54] VITALS: BP 148/76
[2018-11-19 06:50] LABS: BASO # 0.1 x10^3/uL (0.0-0.2); BASO % 1 % (0-3); EOS # 0.2 x10^3/uL (0.0-0.7); EOS % 2 % (0-3); HEMATOCRIT 28.7 % (39.0-53.0); HEMOGLOBIN 9.4 g/dL (13.0-17.5); LYMPH # 2.2 x10^3/uL (1.0-4.8); LYMPH % 21 % (24-48); MEAN CORPUSCULAR HEMOGLOBIN 31 pg (25-35); MEAN CORPUSCULAR HGB CONC 33 g/dL (31-37); MEAN CORPUSCULAR VOLUME 94 fL (79-100); MONO # 1.1 x10^3/uL (0.0-1.1); MONO % 11 % (0-9); NEUT # 7.1 x10^3uL (1.8-7.7); NEUT % 66 % (31-73); PLATELET COUNT 327 x10^3/uL (140-400); RED BLOOD COUNT 3.07 x10^6/uL (4.30-5.70); RED CELL DISTRIBUTION WIDTH 15.3 % (11.5-14.5); WHITE BLOOD COUNT 10.7 x10^3/uL (4.0-11.0)
[2018-11-19 07:00] LABS: ALBUMIN 2.2 g/dL (3.4-5.0); ALBUMIN/GLOBULIN RATIO 0.5 (1.0-1.7); ALK PHOS 67 U/L (46-116); ALT (SGPT) 18 U/L (16-63); ANION GAP 7 (6-14); AST (SGOT) 18 U/L (15-37); BLOOD UREA NITROGEN 30 mg/dL (8-26); BUN/CREATININE RATIO 15 (6-20); CALCIUM 8.8 mg/dL (8.5-10.1); CARBON DIOXIDE 30 mmol/L (21-32); CHLORIDE 107 mmol/L (98-107); GFR 32.6; GLUCOSE 141 mg/dL (70-99); POTASSIUM 4.2 mmol/L (3.5-5.1); SODIUM 144 mmol/L (136-145); TOTAL BILIRUBIN 0.2 mg/dL (0.2-1.0); TOTAL PROTEIN 6.8 g/dL (6.4-8.2)
[2018-11-19 07:11] LABS: VAL ACID 44 mcg/mL (50-100)
[2018-11-19] MEDS: VENLAFAXINE 37.5 MG TABLET. PO SCH (08:22)
[2018-11-19] MEDS: POLYETHYLENE GLYCOL 3350 17 GM PACKET. PO SCH (08:23)
[2018-11-19] MEDS: LACTOBACILLUS RHAMNOSUS GG 1 CAPSULE. PO SCH ×2 (08:23→19:39)
[2018-11-19] MEDS: amLODIPine BESYLATE 10 MG TABLET PO SCH (08:23)
[2018-11-19] MEDS: TAMSULOSIN 0.4 MG CAP.ER.24H. PO SCH (08:23)
[2018-11-19] MEDS: glipiZIDE 5 MG TABLET PO SCH (08:23)
[2018-11-19] MEDS: DIVALPROEX 125 MG CAP.SPRINK PO SCH ×3 (08:23→19:39)
[2018-11-19] MEDS: CHLORHEXIDINE 0.12% 15 ML MOUTHWASH. MM SCH (08:23)
[2018-11-19] MEDS: SODIUM CHLORIDE 0.65% NASAL SPRAY 45ML BOTTLE. NS SCH ×2 (08:24→19:36)
[2018-11-19] MEDS: levoFLOXacin 250 MG TABLET PO SCH (11:28)
[2018-11-19] MEDS: ZIPRASIDONE 20 MG CAPSULE. PO SCH ×2 (13:55→19:38)
[2018-11-19] MEDS: ACETAMINOPHEN 325 MG TABLET PO PRN (15:26)
[2018-11-19 16:04] VITALS: BP 108/66
--- NOTE | 2018-11-19 18:33 | PN ---
DATE: 11/17/2018 PSYCHIATRIC PROGRESS NOTE This late entry, 11/17/2018, covers elements not covered in my initial note. SUBJECTIVE: I met with the patient evening of 11/17/2018. The patient slept 6-1/4 hours previous night. He remains intermittently agitated, received p.r.n. x 2. He was agitated, one of the female nursing assistance and with another demented patient, but did redirect. REVIEW OF SYSTEMS: No CV, , pulmonary, eye, ENT system symptoms on review. Reliability poor. MENTAL STATUS EXAM: Oriented to himself. Insight, judgment, recent and remote memory, attention, concentration, fund of knowledge poor, consistent with his diagnosis mentioned in my initial note. PLAN: No change from initial note. MAN Jeremy TARANGO MD DR: BHARATHI/niya JOB#: [id number] / [id number]
[2018-11-19] MEDS: traZODone 50 MG TABLET. PO SCH ×2 (19:38→21:59)
[2018-11-19] MEDS: ATORVASTATIN CALCIUM 20 MG TABLET PO SCH (19:38)
[2018-11-19] MEDS: traMADol 50 MG TABLET PO PRN (22:00)
--- NOTE | 2018-11-19 22:19 | PDOC ---
Exam Note: Geremias Note: Please also refer to the separate dictated note~for this date of service dictated separately.~Patient seen individually. Discussed the patient with Nursing staff reviewed the chart.~Reviewed interim history and current functioning. Reviewed vital signs,~Labs/ Radiology~and current medications noted below. Continue current treatment with the changes noted in the dictated addendum note Assessment: Vital Signs/I&O: Vital Signs Date Time Temp Pulse Resp B/P (MAP) Pulse Ox O2 Delivery O2 Flow Rate FiO2 11/19/18 16:04 98.8 89 20 108/66 (80) 97 11/19/18 05:54 Room Air I & O 11/18/18 11/18/18 11/19/18 14:59 22:59 06:59 Intake Total 600 ml 480 ml 240 ml Balance 600 ml 480 ml 240 ml Labs: Laboratory Tests Test 11/19/18 06:36 11/19/18 07:16 White Blood Count 10.7 x10^3/uL (4.0-11.0) Red Blood Count 3.07 x10^6/uL (4.30-5.70) L Hemoglobin 9.4 g/dL (13.0-17.5) L Hematocrit 28.7 % (39.0-53.0) L Mean Corpuscular Volume 94 fL (79-100) Mean Corpuscular Hemoglobin 31 pg (25-35) Mean Corpuscular Hemoglobin Concent 33 g/dL (31-37) Red Cell Distribution Width 15.3 % (11.5-14.5) H Platelet Count 327 x10^3/uL (140-400) Neutrophils (%) (Auto) 66 % (31-73) Lymphocytes (%) (Auto) 21 % (24-48) L Monocytes (%) (Auto) 11 % (0-9) H Eosinophils (%) (Auto) 2 % (0-3) Basophils (%) (Auto) 1 % (0-3) Neutrophils # (Auto) 7.1 x10^3uL (1.8-7.7) Lymphocytes # (Auto) 2.2 x10^3/uL (1.0-4.8) Monocytes # (Auto) 1.1 x10^3/uL (0.0-1.1) Eosinophils # (Auto) 0.2 x10^3/uL (0.0-0.7) Basophils # (Auto) 0.1 x10^3/uL (0.0-0.2) Sodium Level 144 mmol/L (136-145) Potassium Level 4.2 mmol/L (3.5-5.1) Chloride Level 107 mmol/L (98-107) Carbon Dioxide Level 30 mmol/L (21-32) Anion Gap 7 (6-14) Blood Urea Nitrogen 30 mg/dL (8-26) H Creatinine 2.0 mg/dL (0.7-1.3) H Estimated GFR (Cockcroft-Gault) 32.6 BUN/Creatinine Ratio 15 (6-20) Glucose Level 141 mg/dL (70-99) H Calcium Level 8.8 mg/dL (8.5-10.1) Total Bilirubin 0.2 mg/dL (0.2-1.0) Aspartate Amino Transferase (AST) 18 U/L (15-37) Alanine Aminotransferase (ALT) 18 U/L (16-63) Alkaline Phosphatase 67 U/L (46-116) Total Protein 6.8 g/dL (6.4-8.2) Albumin 2.2 g/dL (3.4-5.0) L Albumin/Globulin Ratio 0.5 (1.0-1.7) L Valproic Acid Level 44 mcg/mL (50-100) L Valproic Acid Last Dose Date 11/18/18 Valproic Acid Last Dose Time 2100 Glucose (Fingerstick) 122 mg/dL (70-99) H Current Medications: Meds: Current Medications Medications (Trade) Dose Ordered Sig/Hoda Route PRN Reason Start Time Stop Time Status Last Admin Dose Admin Levofloxacin (Levaquin) 250 mg Q24H PO 11/19/18 11:00 11/23/18 10:59 11/19/18 11:28 Divalproex Sodium (Depakote Sprinkles) 500 mg QHS PO 11/19/18 21:00 11/19/18 19:39 I have reviewed the current psychotropics carefully including drug interactions. Risk benefit ratio favors no change other than as noted in my dictated progress note. Diagnosis: Problems: (1) Mood disorder (2) Anxiety disorder (3) Dementia, vascular, with delusions (4) Dementia, vascular, with depression (5) Dementia in Alzheimer's disease with delusions (6) Dementia in Alzheimer's disease with depression (7) Impulse control disorder TERRELL TARANGO MD Nov 19, 2018 22:19
[2018-11-20 06:11] VITALS: BP 129/73
[2018-11-20] MEDS: CHLORHEXIDINE 0.12% 15 ML MOUTHWASH. MM SCH ×2 (08:38→09:00)
[2018-11-20] MEDS: LACTOBACILLUS RHAMNOSUS GG 1 CAPSULE. PO SCH ×2 (08:38→20:11)
[2018-11-20] MEDS: TAMSULOSIN 0.4 MG CAP.ER.24H. PO SCH (08:38)
[2018-11-20] MEDS: VENLAFAXINE 37.5 MG TABLET. PO SCH (08:38)
[2018-11-20] MEDS: POLYETHYLENE GLYCOL 3350 17 GM PACKET. PO SCH (08:38)
[2018-11-20] MEDS: SODIUM CHLORIDE 0.65% NASAL SPRAY 45ML BOTTLE. NS SCH ×2 (08:38→21:00)
[2018-11-20] MEDS: glipiZIDE 5 MG TABLET PO SCH (08:39)
[2018-11-20] MEDS: amLODIPine BESYLATE 10 MG TABLET PO SCH (08:39)
[2018-11-20] MEDS: DIVALPROEX 125 MG CAP.SPRINK PO SCH ×3 (08:41→20:12)
[2018-11-20] MEDS: BUDESONIDE 0.5 MG/2 ML NEBU NEB SCH ×2 (10:03→21:21)
[2018-11-20] MEDS: levoFLOXacin 250 MG TABLET PO SCH (12:07)
[2018-11-20] MEDS: ZIPRASIDONE 20 MG CAPSULE. PO SCH (14:30)
[2018-11-20 16:10] VITALS: BP 101/60
[2018-11-20] MEDS: ACETAMINOPHEN 325 MG TABLET PO PRN (16:50)
[2018-11-20] MEDS: ATORVASTATIN CALCIUM 20 MG TABLET PO SCH (20:12)
[2018-11-20] MEDS: ZIPRASIDONE 60 MG CAPSULE. PO SCH (20:16)
--- NOTE | 2018-11-20 22:26 | PDOC ---
Exam Note: Geremias Note: Please also refer to the separate dictated note~for this date of service dictated separately.~Patient seen individually. Discussed the patient with Nursing staff reviewed the chart.~Reviewed interim history and current functioning. Reviewed vital signs,~Labs/ Radiology~and current medications noted below. Continue current treatment with the changes noted in the dictated addendum note Assessment: Vital Signs/I&O: Vital Signs Date Time Temp Pulse Resp B/P (MAP) Pulse Ox O2 Delivery O2 Flow Rate FiO2 11/20/18 21:22 98 Room Air 11/20/18 16:10 98.0 89 17 101/60 (74) I & O 11/19/18 11/19/18 11/20/18 15:00 23:00 07:00 Intake Total 720 ml 720 ml Balance 720 ml 720 ml Labs: Laboratory Tests Test 11/20/18 07:30 Glucose (Fingerstick) 70 mg/dL (70-99) Current Medications: Meds: Current Medications Medications (Trade) Dose Ordered Sig/Hoda Route PRN Reason Start Time Stop Time Status Last Admin Dose Admin Divalproex Sodium (Depakote Sprinkles) 250 mg 0900,1400 PO 11/20/18 09:00 11/20/18 14:31 Ziprasidone (Geodon) 60 mg QHS PO 11/20/18 21:00 11/20/18 20:16 I have reviewed the current psychotropics carefully including drug interactions. Risk benefit ratio favors no change other than as noted in my dictated progress note. Diagnosis: Problems: (1) Mood disorder (2) Anxiety disorder (3) Dementia, vascular, with delusions (4) Dementia, vascular, with depression (5) Dementia in Alzheimer's disease with delusions (6) Dementia in Alzheimer's disease with depression (7) Impulse control disorder TERRELL TARANGO MD Nov 20, 2018 22:26
--- NOTE | 2018-11-21 00:20 | PN ---
DATE: 11/18/2018 This late entry 11/18/2018 covers elements not covered in my initial note. SUBJECTIVE: I met with the patient in the evening. The patient slept 7-3/4 hours previous night. He remains confused, agitated during the day, took his meds in ice cream. REVIEW OF SYSTEMS: No CV, , pulmonary, eye, ENT system symptoms on review. Reliability poor. MENTAL STATUS EXAM: Oriented to himself. Insight, judgment, recent and remote memory, attention, concentration, fund of knowledge poor, consistent with his diagnosis mentioned in my initial note. PLAN: No change from initial note. MAN Jeremy TARANGO MD DR: BHARATHI/niya JOB#: [id number] / [id number]
[2018-11-21 06:28] VITALS: BP 126/66
[2018-11-21] MEDS: LACTOBACILLUS RHAMNOSUS GG 1 CAPSULE. PO SCH ×2 (09:15→19:42)
[2018-11-21] MEDS: DIVALPROEX 125 MG CAP.SPRINK PO SCH ×3 (09:15→19:42)
[2018-11-21] MEDS: TAMSULOSIN 0.4 MG CAP.ER.24H. PO SCH (09:15)
[2018-11-21] MEDS: amLODIPine BESYLATE 10 MG TABLET PO SCH (09:16)
[2018-11-21] MEDS: CHLORHEXIDINE 0.12% 15 ML MOUTHWASH. MM SCH (09:16)
[2018-11-21] MEDS: POLYETHYLENE GLYCOL 3350 17 GM PACKET. PO SCH (09:16)
[2018-11-21] MEDS: SODIUM CHLORIDE 0.65% NASAL SPRAY 45ML BOTTLE. NS SCH ×2 (09:16→19:41)
[2018-11-21] MEDS: VENLAFAXINE 75 MG TABLET. PO SCH (09:16)
[2018-11-21] MEDS: glipiZIDE 5 MG TABLET PO SCH (09:16)
[2018-11-21] MEDS: BUDESONIDE 0.5 MG/2 ML NEBU NEB SCH ×2 (10:27→21:18)
[2018-11-21] MEDS: levoFLOXacin 250 MG TABLET PO SCH (11:51)
[2018-11-21] MEDS: ZIPRASIDONE 20 MG CAPSULE. PO SCH (14:43)
[2018-11-21 16:16] VITALS: BP 124/74
[2018-11-21] MEDS: ZIPRASIDONE 60 MG CAPSULE. PO SCH (19:42)
[2018-11-21] MEDS: ATORVASTATIN CALCIUM 20 MG TABLET PO SCH (19:42)
[2018-11-21] MEDS: traZODone 50 MG TABLET. PO SCH (19:42)
--- NOTE | 2018-11-21 22:16 | PDOC ---
Exam Note: Geremias Note: Please also refer to the separate dictated note~for this date of service dictated separately.~Patient seen individually. Discussed the patient with Nursing staff reviewed the chart.~Reviewed interim history and current functioning. Reviewed vital signs,~Labs/ Radiology~and current medications noted below. Continue current treatment with the changes noted in the dictated addendum note Assessment: Vital Signs/I&O: Vital Signs Date Time Temp Pulse Resp B/P (MAP) Pulse Ox O2 Delivery O2 Flow Rate FiO2 11/21/18 21:03 96 Room Air 11/21/18 16:16 98.3 80 20 124/74 (91) I & O 11/20/18 11/20/18 11/21/18 14:59 22:59 06:59 Intake Total 600 ml 480 ml 240 ml Balance 600 ml 480 ml 240 ml Labs: Laboratory Tests Test 11/21/18 07:50 Glucose (Fingerstick) 89 mg/dL (70-99) Current Medications: Meds: Current Medications Medications (Trade) Dose Ordered Sig/Hdoa Route PRN Reason Start Time Stop Time Status Last Admin Dose Admin Venlafaxine HCl (Effexor) 75 mg DAILY PO 11/21/18 09:00 11/21/18 09:16 I have reviewed the current psychotropics carefully including drug interactions. Risk benefit ratio favors no change other than as noted in my dictated progress note. Diagnosis: Problems: (1) Mood disorder (2) Anxiety disorder (3) Dementia, vascular, with delusions (4) Dementia, vascular, with depression (5) Dementia in Alzheimer's disease with delusions (6) Dementia in Alzheimer's disease with depression (7) Impulse control disorder TERRELL TARANGO MD Nov 21, 2018 22:16
--- NOTE | 2018-11-22 00:08 | PN ---
DATE: 11/19/2018 PSYCHIATRIC PROGRESS NOTE This late entry 11/19/2018 covers elements not covered in my initial note. SUBJECTIVE: I met with the patient in the evening of 11/19/2018. The patient slept 7-3/4 hours previous night. He has been agitated with noises, shaking the doors, threatening staff and "I'm trying to kill." REVIEW OF SYSTEMS: No CV, , pulmonary, eye, ENT system symptoms on review. Reliability poor. MENTAL STATUS EXAM: Oriented to himself. Insight, judgment, recent and remote memory, attention, concentration, fund of knowledge poor consistent with his diagnosis mentioned in my initial note. PLAN: Valproic acid level subtherapeutic at 44, on Depakote 250 mg t.i.d., we will increase it to 250 b.i.d. 500 at night. Check CBC, CMP, valproic acid level in 3 days. Rest unchanged for now. MAN Jeremy TARANGO MD DR: BHARATHI/niya JOB#: [id number] / [id number]
--- NOTE | 2018-11-22 00:17 | PN ---
DATE: 11/20/2018 PSYCHIATRIC PROGRESS NOTE. This is a late entry 11/20/2018, covers the elements not covered in my initial note. SUBJECTIVE: I met with the patient in the evening of 11/20/2018. The patient slept 6-1/4 hours previous night. He was somewhat drowsy at bedtime and late in the evening, he was getting loud and somewhat abrasive, but rest of the day, somewhat better. He remains confused. REVIEW OF SYSTEMS: No CV, , pulmonary, eye, ENT system symptoms on review. Reliability poor. MENTAL STATUS EXAM: Oriented to himself. Insight, judgment, recent and remote memory, attention, concentration, fund of knowledge poor, consistent with his diagnosis mentioned in my initial note. PLAN: No change from initial note. MAN Jeremy TARANGO MD DR: BHARATHI/niya JOB#: [id number] / [id number]
[2018-11-22 06:31] LABS: ALBUMIN 2.4 g/dL (3.4-5.0); ALBUMIN/GLOBULIN RATIO 0.5 (1.0-1.7); ALK PHOS 68 U/L (46-116); ALT (SGPT) 20 U/L (16-63); ANION GAP 8 (6-14); AST (SGOT) 21 U/L (15-37); BLOOD UREA NITROGEN 27 mg/dL (8-26); BUN/CREATININE RATIO 14 (6-20); CALCIUM 9.1 mg/dL (8.5-10.1); CARBON DIOXIDE 31 mmol/L (21-32); CHLORIDE 105 mmol/L (98-107); CREATININE 1.9 mg/dL (0.7-1.3); GFR 34.5; GLUCOSE 95 mg/dL (70-99); POTASSIUM 4.2 mmol/L (3.5-5.1); SODIUM 144 mmol/L (136-145); TOTAL BILIRUBIN 0.2 mg/dL (0.2-1.0); TOTAL PROTEIN 7.7 g/dL (6.4-8.2)
[2018-11-22 06:33] LABS: HEMATOCRIT 32.6 % (39.0-53.0); HEMOGLOBIN 10.3 g/dL (13.0-17.5); RED BLOOD COUNT 3.5 x10^6/uL (4.30-5.70); RED CELL DISTRIBUTION WIDTH 14.8 % (11.5-14.5); WHITE BLOOD COUNT 12.8 x10^3/uL (4.0-11.0)
[2018-11-22 06:34] LABS: VAL ACID 62 mcg/mL (50-100)
[2018-11-22 06:37] VITALS: BP 106/71
[2018-11-22] MEDS: levoFLOXacin 250 MG TABLET PO SCH (08:39)
[2018-11-22] MEDS: amLODIPine BESYLATE 10 MG TABLET PO SCH (08:40)
[2018-11-22] MEDS: VENLAFAXINE 75 MG TABLET. PO SCH (08:41)
[2018-11-22] MEDS: DIVALPROEX 125 MG CAP.SPRINK PO SCH ×3 (08:41→19:35)
[2018-11-22] MEDS: POLYETHYLENE GLYCOL 3350 17 GM PACKET. PO SCH (08:41)
[2018-11-22] MEDS: glipiZIDE 5 MG TABLET PO SCH (08:41)
[2018-11-22] MEDS: CHLORHEXIDINE 0.12% 15 ML MOUTHWASH. MM SCH ×2 (08:41→09:00)
[2018-11-22] MEDS: LACTOBACILLUS RHAMNOSUS GG 1 CAPSULE. PO SCH ×2 (08:41→19:35)
[2018-11-22] MEDS: TAMSULOSIN 0.4 MG CAP.ER.24H. PO SCH (08:41)
[2018-11-22] MEDS: SODIUM CHLORIDE 0.65% NASAL SPRAY 45ML BOTTLE. NS SCH ×3 (08:51→19:36)
[2018-11-22] MEDS: BUDESONIDE 0.5 MG/2 ML NEBU NEB SCH ×2 (11:08→20:31)
[2018-11-22] MEDS: LORazepam 0.5 MG TABLET PO PRN (13:53)
[2018-11-22] MEDS: ZIPRASIDONE 20 MG CAPSULE. PO SCH (14:29)
[2018-11-22 15:50] VITALS: BP 116/68
[2018-11-22] MEDS: ATORVASTATIN CALCIUM 20 MG TABLET PO SCH (19:35)
[2018-11-22] MEDS: traZODone 50 MG TABLET. PO SCH (19:35)
[2018-11-22] MEDS: ZIPRASIDONE 60 MG CAPSULE. PO SCH (19:35)
[2018-11-22] MEDS: traMADol 50 MG TABLET PO PRN (21:19)
--- NOTE | 2018-11-22 22:18 | PDOC ---
Exam Note: Geremias Note: Please also refer to the separate dictated note~for this date of service dictated separately.~Patient seen individually. Discussed the patient with Nursing staff reviewed the chart.~Reviewed interim history and current functioning. Reviewed vital signs,~Labs/ Radiology~and current medications noted below. Continue current treatment with the changes noted in the dictated addendum note Assessment: Vital Signs/I&O: Vital Signs Date Time Temp Pulse Resp B/P (MAP) Pulse Ox O2 Delivery O2 Flow Rate FiO2 11/22/18 21:19 96 Room Air 11/22/18 15:50 97.6 104 17 116/68 (84) I & O 11/21/18 11/21/18 11/22/18 15:00 23:00 07:00 Intake Total 840 ml 480 ml 240 ml Balance 840 ml 480 ml 240 ml Labs: Laboratory Tests Test 11/22/18 06:04 11/22/18 07:30 White Blood Count 12.8 x10^3/uL (4.0-11.0) H Red Blood Count 3.50 x10^6/uL (4.30-5.70) L Hemoglobin 10.3 g/dL (13.0-17.5) L Hematocrit 32.6 % (39.0-53.0) L Mean Corpuscular Volume 93 fL (79-100) Mean Corpuscular Hemoglobin 30 pg (25-35) Mean Corpuscular Hemoglobin Concent 32 g/dL (31-37) Red Cell Distribution Width 14.8 % (11.5-14.5) H Platelet Count 416 x10^3/uL (140-400) H Sodium Level 144 mmol/L (136-145) Potassium Level 4.2 mmol/L (3.5-5.1) Chloride Level 105 mmol/L (98-107) Carbon Dioxide Level 31 mmol/L (21-32) Anion Gap 8 (6-14) Blood Urea Nitrogen 27 mg/dL (8-26) H Creatinine 1.9 mg/dL (0.7-1.3) H Estimated GFR (Cockcroft-Gault) 34.5 BUN/Creatinine Ratio 14 (6-20) Glucose Level 95 mg/dL (70-99) Calcium Level 9.1 mg/dL (8.5-10.1) Total Bilirubin 0.2 mg/dL (0.2-1.0) Aspartate Amino Transferase (AST) 21 U/L (15-37) Alanine Aminotransferase (ALT) 20 U/L (16-63) Alkaline Phosphatase 68 U/L (46-116) Total Protein 7.7 g/dL (6.4-8.2) Albumin 2.4 g/dL (3.4-5.0) L Albumin/Globulin Ratio 0.5 (1.0-1.7) L Valproic Acid Level 62 mcg/mL (50-100) Valproic Acid Last Dose Date 11/21/2018 Valproic Acid Last Dose Time 2100 Glucose (Fingerstick) 93 mg/dL (70-99) Current Medications: I have reviewed the current psychotropics carefully including drug interactions. Risk benefit ratio favors no change other than as noted in my dictated progress note. 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
--- NOTE | 2018-11-23 00:13 | PN ---
DATE: 11/21/2018 PSYCHIATRIC PROGRESS NOTE This is a late entry 11/21/2018, covers the elements not covered in my initial note. SUBJECTIVE: I met with the patient evening of 11/21/2018. The patient slept 7 hours previous night. He has been having a better day. Cooperative at lunchtime, compliant with medications. Remains confused. REVIEW OF SYSTEMS: No CV, , pulmonary, eye, ENT system symptoms on review. Reliability is poor. MENTAL STATUS EXAM: Oriented to himself. Insight, judgment, recent and remote memory, attention, concentration, fund of knowledge poor, consistent with his diagnosis mentioned in my initial note. PLAN: No change from initial note. MAN Jeremy TARANGO MD DR: BHARATHI/niya JOB#: [id number] / [id number]
[2018-11-23 06:14] VITALS: BP 150/81
[2018-11-23] MEDS: SODIUM CHLORIDE 0.65% NASAL SPRAY 45ML BOTTLE. NS SCH ×2 (08:03→19:23)
[2018-11-23] MEDS: CHLORHEXIDINE 0.12% 15 ML MOUTHWASH. MM SCH (08:03)
[2018-11-23] MEDS: BUDESONIDE 0.5 MG/2 ML NEBU NEB SCH ×2 (09:27→19:52)
[2018-11-23] MEDS: POLYETHYLENE GLYCOL 3350 17 GM PACKET. PO SCH (10:29)
[2018-11-23] MEDS: VENLAFAXINE 75 MG TABLET. PO SCH (10:30)
[2018-11-23] MEDS: DIVALPROEX 125 MG CAP.SPRINK PO SCH ×3 (10:30→19:21)
[2018-11-23] MEDS: LACTOBACILLUS RHAMNOSUS GG 1 CAPSULE. PO SCH ×2 (10:30→19:21)
[2018-11-23] MEDS: TAMSULOSIN 0.4 MG CAP.ER.24H. PO SCH (10:30)
[2018-11-23] MEDS: glipiZIDE 5 MG TABLET PO SCH (10:30)
[2018-11-23] MEDS: amLODIPine BESYLATE 10 MG TABLET PO SCH (10:31)
[2018-11-23] MEDS: ZIPRASIDONE 20 MG CAPSULE. PO SCH (14:28)
[2018-11-23 16:21] VITALS: BP 118/70
[2018-11-23] MEDS: ZIPRASIDONE 60 MG CAPSULE. PO SCH (19:21)
[2018-11-23] MEDS: traZODone 50 MG TABLET. PO SCH (19:21)
[2018-11-23] MEDS: ATORVASTATIN CALCIUM 20 MG TABLET PO SCH (19:21)
--- NOTE | 2018-11-23 22:27 | PDOC ---
Exam Note: Geremias Note: Please also refer to the separate dictated note~for this date of service dictated separately.~Patient seen individually. Discussed the patient with Nursing staff reviewed the chart.~Reviewed interim history and current functioning. Reviewed vital signs,~Labs/ Radiology~and current medications noted below. Continue current treatment with the changes noted in the dictated addendum note Assessment: Vital Signs/I&O: Vital Signs Date Time Temp Pulse Resp B/P (MAP) Pulse Ox O2 Delivery O2 Flow Rate FiO2 11/23/18 19:55 97 Room Air 11/23/18 16:21 97.6 67 19 118/70 (86) I & O 11/22/18 11/22/18 11/23/18 15:00 23:00 07:00 Intake Total 480 ml 480 ml Balance 480 ml 480 ml Labs: Laboratory Tests Test 11/23/18 07:56 Glucose (Fingerstick) 84 mg/dL (70-99) Current Medications: I have reviewed the current psychotropics carefully including drug interactions. Risk benefit ratio favors no change other than as noted in my dictated progress note. 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
[2018-11-24 06:24] VITALS: BP 150/82
[2018-11-24] MEDS: CHLORHEXIDINE 0.12% 15 ML MOUTHWASH. MM SCH (08:10)
[2018-11-24] MEDS: DIVALPROEX 125 MG CAP.SPRINK PO SCH ×3 (08:10→20:05)
[2018-11-24] MEDS: TAMSULOSIN 0.4 MG CAP.ER.24H. PO SCH (08:10)
[2018-11-24] MEDS: VENLAFAXINE 75 MG TABLET. PO SCH (08:10)
[2018-11-24] MEDS: LACTOBACILLUS RHAMNOSUS GG 1 CAPSULE. PO SCH ×2 (08:10→20:05)
[2018-11-24] MEDS: glipiZIDE 5 MG TABLET PO SCH (08:10)
[2018-11-24] MEDS: POLYETHYLENE GLYCOL 3350 17 GM PACKET. PO SCH (08:11)
[2018-11-24] MEDS: amLODIPine BESYLATE 10 MG TABLET PO SCH (08:11)
[2018-11-24] MEDS: SODIUM CHLORIDE 0.65% NASAL SPRAY 45ML BOTTLE. NS SCH ×2 (09:00→21:00)
[2018-11-24] MEDS: BUDESONIDE 0.5 MG/2 ML NEBU NEB SCH ×2 (10:11→21:31)
[2018-11-24] MEDS: traMADol 50 MG TABLET PO PRN (13:23)
[2018-11-24] MEDS: ZIPRASIDONE 20 MG CAPSULE. PO SCH (13:23)
[2018-11-24 16:26] VITALS: BP 150/71
[2018-11-24] MEDS: ZIPRASIDONE 60 MG CAPSULE. PO SCH (20:04)
[2018-11-24] MEDS: traZODone 50 MG TABLET. PO SCH (20:04)
[2018-11-24] MEDS: ATORVASTATIN CALCIUM 20 MG TABLET PO SCH (20:05)
--- NOTE | 2018-11-24 22:24 | PDOC ---
Exam Note: Geremias Note: Please also refer to the separate dictated note~for this date of service dictated separately.~Patient seen individually. Discussed the patient with Nursing staff reviewed the chart.~Reviewed interim history and current functioning. Reviewed vital signs,~Labs/ Radiology~and current medications noted below. Continue current treatment with the changes noted in the dictated addendum note Assessment: Vital Signs/I&O: Vital Signs Date Time Temp Pulse Resp B/P (MAP) Pulse Ox O2 Delivery O2 Flow Rate FiO2 11/24/18 21:31 96 Room Air 11/24/18 16:26 98.4 86 20 150/71 (97) I & O 11/23/18 11/23/18 11/24/18 14:59 22:59 06:59 Intake Total 480 ml 240 ml 240 ml Balance 480 ml 240 ml 240 ml Labs: Laboratory Tests Test 11/24/18 05:56 11/24/18 06:26 11/24/18 07:09 Glucose (Fingerstick) 63 mg/dL (70-99) L 108 mg/dL (70-99) H 98 mg/dL (70-99) Current Medications: I have reviewed the current psychotropics carefully including drug interactions. Risk benefit ratio favors no change other than as noted in my dictated progress note. Diagnosis: Problems: (1) Mood disorder (2) Anxiety disorder (3) Dementia, vascular, with delusions (4) Dementia, vascular, with depression (5) Dementia in Alzheimer's disease with delusions (6) Dementia in Alzheimer's disease with depression (7) Impulse control disorder (8) Major neurocognitive disorder TERRELL TARANGO MD Nov 24, 2018 22:24
--- NOTE | 2018-11-25 01:31 | PN ---
DATE: 11/23/2018 PSYCHIATRIC PROGRESS NOTE This late entry 11/23/2018, covers elements not covered in my initial note. SUBJECTIVE: I met with the patient in the evening of 11/23/2018 and staffed at a treatment team meeting with the entire team in the morning. The patient's son, Andi attended the conference. He has been more compliant with cares. Appetite 75%-100%. Slept 7-1/2 hours previous night, takes his medications crushed in chocolate pudding, calm, compliant, still confused. There was a concern that [facility] may not take him back. Nevertheless, he is doing better, responding to current treatment and social service staff will help facilitate him returning there. Valproic acid level on the was therapeutic at 62. REVIEW OF SYSTEMS: No CV, , pulmonary, eye, ENT system symptoms on review. Reliability poor. MENTAL STATUS EXAM: Oriented to himself. Insight, judgment, recent and remote memory, attention, concentration, fund of knowledge poor, consistent with his diagnosis mentioned in my initial note. PLAN: Continue current psychotropics and Geodon has been increased. Maintain Effexor, Depakote, trazodone and Ativan as p.r.n. 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 TERRELL TARANGO MD DR: BHARATHI/niya JOB#: [id number] / [id number]
--- NOTE | 2018-11-25 01:45 | PN ---
DATE: 11/22/2018 PSYCHIATRIC PROGRESS NOTE This late entry 11/22/2018 covers elements not covered in my initial note. I met with the patient in the evening of 11/22/2018. The patient slept 7-1/2 hours previous night. He remains confused, takes his medications crushed. At 2 p.m., he was agitated, but redirected. He was yelling back at another patient, who was quite disruptive on the unit. In fact, the yelling by the patient was an attempt to help settle the other patient down, but he was unable to perceive how this was ineffective. REVIEW OF SYSTEMS: No CV, , pulmonary, eye, ENT system symptoms on review. MENTAL STATUS EXAM: Oriented to himself. Insight, judgment, recent and remote memory, attention, concentration, fund of knowledge poor, consistent with his diagnosis. Overall, despite the intermittent agitation, he is doing much better than before responding to his current psychotropics much calmer most of the day. LABORATORY DATA: Reviewed. IMPRESSION: Unchanged from initial note. PLAN: No change from initial note with [facility]. MAN Jeremy TARANGO MD DR: BHARATHI/niya JOB#: [id number] / [id number]
[2018-11-25 06:18] VITALS: BP 165/70
[2018-11-25] MEDS: glipiZIDE 5 MG TABLET PO SCH (08:10)
[2018-11-25] MEDS: LACTOBACILLUS RHAMNOSUS GG 1 CAPSULE. PO SCH ×2 (08:10→19:36)
[2018-11-25] MEDS: CHLORHEXIDINE 0.12% 15 ML MOUTHWASH. MM SCH (08:10)
[2018-11-25] MEDS: SODIUM CHLORIDE 0.65% NASAL SPRAY 45ML BOTTLE. NS SCH ×2 (08:10→19:37)
[2018-11-25] MEDS: TAMSULOSIN 0.4 MG CAP.ER.24H. PO SCH (08:11)
[2018-11-25] MEDS: DIVALPROEX 125 MG CAP.SPRINK PO SCH ×3 (08:11→19:36)
[2018-11-25] MEDS: POLYETHYLENE GLYCOL 3350 17 GM PACKET. PO SCH (08:11)
[2018-11-25] MEDS: VENLAFAXINE 75 MG TABLET. PO SCH (08:11)
[2018-11-25] MEDS: amLODIPine BESYLATE 10 MG TABLET PO SCH (08:12)
[2018-11-25] MEDS: BUDESONIDE 0.5 MG/2 ML NEBU NEB SCH ×2 (09:45→19:41)
[2018-11-25] MEDS: ZIPRASIDONE 40 MG CAPSULE. PO SCH (14:33)
[2018-11-25 15:58] VITALS: BP 119/60
[2018-11-25] MEDS: ZIPRASIDONE 60 MG CAPSULE. PO SCH (19:36)
[2018-11-25] MEDS: ATORVASTATIN CALCIUM 20 MG TABLET PO SCH (19:37)
[2018-11-25] MEDS: traZODone 50 MG TABLET. PO SCH (19:37)
--- NOTE | 2018-11-25 23:06 | PDOC ---
Exam Note: Geremias Note: Please also refer to the separate dictated note~for this date of service dictated separately.~Patient seen individually. Discussed the patient with Nursing staff reviewed the chart.~Reviewed interim history and current functioning. Reviewed vital signs,~Labs/ Radiology~and current medications noted below. Continue current treatment with the changes noted in the dictated addendum note Assessment: Vital Signs/I&O: Vital Signs Date Time Temp Pulse Resp B/P (MAP) Pulse Ox O2 Delivery O2 Flow Rate FiO2 11/25/18 19:43 96 Room Air 11/25/18 15:58 98.2 78 18 119/60 (79) I & O 11/24/18 11/24/18 11/25/18 15:00 23:00 07:00 Intake Total 720 ml 600 ml Balance 720 ml 600 ml Labs: Laboratory Tests Test 11/25/18 08:00 Glucose (Fingerstick) 108 mg/dL (70-99) H Current Medications: Meds: Current Medications Medications (Trade) Dose Ordered Sig/Hoda Route PRN Reason Start Time Stop Time Status Last Admin Dose Admin Ziprasidone (Geodon) 40 mg 1500 PO 11/25/18 15:00 11/25/18 14:33 I have reviewed the current psychotropics carefully including drug interactions. Risk benefit ratio favors no change other than as noted in my dictated progress note. Diagnosis: Problems: (1) Mood disorder (2) Anxiety disorder (3) Anxiety disorder (4) Dementia, vascular, with delusions (5) Dementia, vascular, with depression (6) Dementia in Alzheimer's disease with delusions (7) Dementia in Alzheimer's disease with depression (8) Impulse control disorder (9) Major neurocognitive disorder TERRELL TARANGO MD Nov 25, 2018 23:06
[2018-11-26 06:17] VITALS: BP 131/76
[2018-11-26] MEDS: glipiZIDE 5 MG TABLET PO SCH (07:58)
[2018-11-26] MEDS: CHLORHEXIDINE 0.12% 15 ML MOUTHWASH. MM SCH (07:59)
[2018-11-26] MEDS: SODIUM CHLORIDE 0.65% NASAL SPRAY 45ML BOTTLE. NS SCH ×2 (07:59→19:34)
[2018-11-26] MEDS: LACTOBACILLUS RHAMNOSUS GG 1 CAPSULE. PO SCH ×2 (08:00→19:36)
[2018-11-26] MEDS: BUDESONIDE 0.5 MG/2 ML NEBU NEB SCH ×2 (08:00→20:00)
[2018-11-26] MEDS: DIVALPROEX 125 MG CAP.SPRINK PO SCH ×3 (08:01→19:36)
[2018-11-26] MEDS: TAMSULOSIN 0.4 MG CAP.ER.24H. PO SCH (08:02)
[2018-11-26] MEDS: amLODIPine BESYLATE 10 MG TABLET PO SCH (08:02)
[2018-11-26] MEDS: POLYETHYLENE GLYCOL 3350 17 GM PACKET. PO SCH (08:02)
[2018-11-26] MEDS: VENLAFAXINE 75 MG TABLET. PO SCH (08:02)
[2018-11-26] MEDS: ZIPRASIDONE 40 MG CAPSULE. PO SCH (08:03)
[2018-11-26 14:10] VITALS: BP 116/61
[2018-11-26 16:21] VITALS: BP 114/62
[2018-11-26] MEDS: ZIPRASIDONE 60 MG CAPSULE. PO SCH (19:36)
[2018-11-26] MEDS: traZODone 50 MG TABLET. PO SCH (19:36)
[2018-11-26] MEDS: ATORVASTATIN CALCIUM 20 MG TABLET PO SCH (19:36)
[2018-11-26] MEDS: traMADol 50 MG TABLET PO PRN (19:42)
--- NOTE | 2018-11-26 22:13 | PDOC ---
Exam Note: Geremias Note: Please also refer to the separate dictated note~for this date of service dictated separately.~Patient seen individually. Discussed the patient with Nursing staff reviewed the chart.~Reviewed interim history and current functioning. Reviewed vital signs,~Labs/ Radiology~and current medications noted below. Continue current treatment with the changes noted in the dictated addendum note Assessment: Vital Signs/I&O: Vital Signs Date Time Temp Pulse Resp B/P (MAP) Pulse Ox O2 Delivery O2 Flow Rate FiO2 11/26/18 19:42 16 Room Air 11/26/18 16:21 97.8 87 114/62 (79) 99 I & O 11/25/18 11/25/18 11/26/18 15:00 23:00 07:00 Intake Total 720 ml 360 ml 240 ml Balance 720 ml 360 ml 240 ml Labs: Laboratory Tests Test 11/26/18 07:25 Glucose (Fingerstick) 111 mg/dL (70-99) H Current Medications: I have reviewed the current psychotropics carefully including drug interactions. Risk benefit ratio favors no change other than as noted in my dictated progress note. Diagnosis: Problems: (1) Mood disorder (2) Anxiety disorder (3) Dementia, vascular, with delusions (4) Dementia, vascular, with depression (5) Dementia in Alzheimer's disease with delusions (6) Dementia in Alzheimer's disease with depression (7) Impulse control disorder (8) Major neurocognitive disorder TERRELL TARANGO MD Nov 26, 2018 22:13
--- NOTE | 2018-11-27 05:24 | PN ---
DATE: 11/24/2018 PSYCHIATRIC PROGRESS NOTE This late entry 11/24/2018 covers elements not covered in my initial note. SUBJECTIVE: I met with the patient in the evening. The patient slept 7-1/4 hours previous night. He has been social, more interactive, less impulsive, pleasant. REVIEW OF SYSTEMS: No CV, , pulmonary, eye, ENT system symptoms on review. Reliability poor. MENTAL STATUS EXAM: Oriented to himself. Insight, judgment, recent and remote memory, attention, concentration, fund of knowledge poor, consistent with his diagnosis. He responds very positively when talking about his son, Andi. LABORATORY DATA: Reviewed. IMPRESSION: Unchanged from initial note. PLAN: No change from initial note. MAN Jeremy TARANGO MD DR: BHARATHI/niya JOB#: [id number] / [id number]
[2018-11-27 05:54] VITALS: BP 150/74
[2018-11-27] MEDS: BUDESONIDE 0.5 MG/2 ML NEBU NEB SCH ×2 (07:15→21:18)
[2018-11-27] MEDS: glipiZIDE 5 MG TABLET PO SCH (08:23)
[2018-11-27] MEDS: CHLORHEXIDINE 0.12% 15 ML MOUTHWASH. MM SCH (08:23)
[2018-11-27] MEDS: VENLAFAXINE 75 MG TABLET. PO SCH (08:24)
[2018-11-27] MEDS: POLYETHYLENE GLYCOL 3350 17 GM PACKET. PO SCH (08:24)
[2018-11-27] MEDS: TAMSULOSIN 0.4 MG CAP.ER.24H. PO SCH (08:24)
[2018-11-27] MEDS: SODIUM CHLORIDE 0.65% NASAL SPRAY 45ML BOTTLE. NS SCH ×2 (08:24→19:30)
[2018-11-27] MEDS: LACTOBACILLUS RHAMNOSUS GG 1 CAPSULE. PO SCH ×2 (08:24→19:29)
[2018-11-27] MEDS: DIVALPROEX 125 MG CAP.SPRINK PO SCH ×3 (08:24→19:29)
[2018-11-27] MEDS: amLODIPine BESYLATE 10 MG TABLET PO SCH (08:25)
[2018-11-27 10:39] LABS: BASO # 0.1 x10^3/uL (0.0-0.2); BASO % 1 % (0-3); EOS # 0.3 x10^3/uL (0.0-0.7); EOS % 3 % (0-3); HEMATOCRIT 29.6 % (39.0-53.0); HEMOGLOBIN 9.6 g/dL (13.0-17.5); LYMPH # 2.2 x10^3/uL (1.0-4.8); LYMPH % 23 % (24-48); MEAN CORPUSCULAR HEMOGLOBIN 30 pg (25-35); MEAN CORPUSCULAR HGB CONC 32 g/dL (31-37); MEAN CORPUSCULAR VOLUME 93 fL (79-100); MONO % 10 % (0-9); NEUT # 6.2 x10^3uL (1.8-7.7); NEUT % 64 % (31-73); PLATELET COUNT 417 x10^3/uL (140-400); WHITE BLOOD COUNT 9.7 x10^3/uL (4.0-11.0)
[2018-11-27 10:51] LABS: ALBUMIN 2.1 g/dL (3.4-5.0); ALBUMIN/GLOBULIN RATIO 0.4 (1.0-1.7); CALCIUM 8.6 mg/dL (8.5-10.1); TOTAL PROTEIN 6.8 g/dL (6.4-8.2)
[2018-11-27 10:52] LABS: GFR 32.6; POTASSIUM 4.2 mmol/L (3.5-5.1); TOTAL BILIRUBIN 0.1 mg/dL (0.2-1.0)
[2018-11-27] MEDS: ZIPRASIDONE 40 MG CAPSULE. PO SCH (14:35)
[2018-11-27 15:46] VITALS: BP 118/67
[2018-11-27] MEDS: traZODone 50 MG TABLET. PO SCH (19:28)
[2018-11-27] MEDS: ZIPRASIDONE 60 MG CAPSULE. PO SCH (19:28)
[2018-11-27] MEDS: ATORVASTATIN CALCIUM 20 MG TABLET PO SCH (19:29)
--- NOTE | 2018-11-27 21:11 | PDOC ---
Exam Note: Geremias Note: Please also refer to the separate dictated note~for this date of service dictated separately.~Patient seen individually. Discussed the patient with Nursing staff reviewed the chart.~Reviewed interim history and current functioning. Reviewed vital signs,~Labs/ Radiology~and current medications noted below. Continue current treatment with the changes noted in the dictated addendum note Assessment: Vital Signs/I&O: Vital Signs Date Time Temp Pulse Resp B/P (MAP) Pulse Ox O2 Delivery O2 Flow Rate FiO2 11/27/18 15:46 97.8 88 16 118/67 (84) 96 11/27/18 07:18 Room Air I & O 11/26/18 11/26/18 11/27/18 14:59 22:59 06:59 Intake Total 240 ml 240 ml Balance 240 ml 240 ml Labs: Laboratory Tests Test 11/27/18 07:37 11/27/18 10:10 Glucose (Fingerstick) 80 mg/dL (70-99) White Blood Count 9.7 x10^3/uL (4.0-11.0) Red Blood Count 3.20 x10^6/uL (4.30-5.70) L Hemoglobin 9.6 g/dL (13.0-17.5) L Hematocrit 29.6 % (39.0-53.0) L Mean Corpuscular Volume 93 fL (79-100) Mean Corpuscular Hemoglobin 30 pg (25-35) Mean Corpuscular Hemoglobin Concent 32 g/dL (31-37) Red Cell Distribution Width 15.0 % (11.5-14.5) H Platelet Count 417 x10^3/uL (140-400) H Neutrophils (%) (Auto) 64 % (31-73) Lymphocytes (%) (Auto) 23 % (24-48) L Monocytes (%) (Auto) 10 % (0-9) H Eosinophils (%) (Auto) 3 % (0-3) Basophils (%) (Auto) 1 % (0-3) Neutrophils # (Auto) 6.2 x10^3uL (1.8-7.7) Lymphocytes # (Auto) 2.2 x10^3/uL (1.0-4.8) Monocytes # (Auto) 1.0 x10^3/uL (0.0-1.1) Eosinophils # (Auto) 0.3 x10^3/uL (0.0-0.7) Basophils # (Auto) 0.1 x10^3/uL (0.0-0.2) Sodium Level 146 mmol/L (136-145) H Potassium Level 4.2 mmol/L (3.5-5.1) Chloride Level 108 mmol/L (98-107) H Carbon Dioxide Level 30 mmol/L (21-32) Anion Gap 8 (6-14) Blood Urea Nitrogen 33 mg/dL (8-26) H Creatinine 2.0 mg/dL (0.7-1.3) H Estimated GFR (Cockcroft-Gault) 32.6 BUN/Creatinine Ratio 17 (6-20) Glucose Level 120 mg/dL (70-99) H Calcium Level 8.6 mg/dL (8.5-10.1) Total Bilirubin 0.1 mg/dL (0.2-1.0) L Aspartate Amino Transferase (AST) 20 U/L (15-37) Alanine Aminotransferase (ALT) 17 U/L (16-63) Alkaline Phosphatase 59 U/L (46-116) Total Protein 6.8 g/dL (6.4-8.2) Albumin 2.1 g/dL (3.4-5.0) L Albumin/Globulin Ratio 0.4 (1.0-1.7) L Current Medications: I have reviewed the current psychotropics carefully including drug interactions. Risk benefit ratio favors no change other than as noted in my dictated progress note. Diagnosis: Problems: (1) Mood disorder (2) Anxiety disorder (3) Dementia, vascular, with delusions (4) Dementia, vascular, with depression (5) Dementia in Alzheimer's disease with delusions (6) Dementia in Alzheimer's disease with depression (7) Impulse control disorder (8) Major neurocognitive disorder TERRELL TARANGO MD Nov 27, 2018 21:11
--- NOTE | 2018-11-27 23:22 | PN ---
DATE: 11/25/2018 PSYCHIATRIC PROGRESS NOTE This late entry 11/25/2018 covers elements not covered in my initial note. SUBJECTIVE: I met with the patient in the evening of 11/25/2018. The patient slept 7 hours previous night. He has done well at night and during the day. He remains confused, wandering, but has not been aggressive, more redirectable. REVIEW OF SYSTEMS: No CV, , pulmonary, eye, ENT system symptoms on review. Reliability poor. MENTAL STATUS EXAM: Oriented to himself. Insight, judgment, recent and remote memory, attention, concentration, fund of knowledge poor, consistent with his diagnosis mentioned in my initial note. PLAN: No change from initial note. MAN Jeremy TARANGO MD DR: BHARATHI/niya JOB#: [id number] / [id number]
--- NOTE | 2018-11-28 00:02 | PN ---
DATE: 11/26/2018 PSYCHIATRIC PROGRESS NOTE This late entry, 11/26, covers elements not covered in my initial note. SUBJECTIVE: I met with the patient evening of 11/26. The patient slept 6-1/4 hours previous night. He has been yelling, intrusive at times, but easily redirects. Overall, had a much better day per nursing report. Some of his agitation is consequent to pain, responds to Ultram. He was very cooperative with letting the staff change his dressing to the suprapubic catheter. REVIEW OF SYSTEMS: No CV, , pulmonary, eye, ENT system symptoms on review. Reliability poor. MENTAL STATUS EXAM: Oriented to himself. Insight, judgment, recent and remote memory, attention, concentration, fund of knowledge poor, consistent with his diagnosis mentioned in my initial note. PLAN: No change from initial note. MAN Jeremy TARANGO MD DR: BHARATHI/niya JOB#: [id number] / [id number]
[2018-11-28 05:37] VITALS: BP 115/76
[2018-11-28] MEDS: BUDESONIDE 0.5 MG/2 ML NEBU NEB SCH ×2 (05:56→21:26)
[2018-11-28] MEDS: CHLORHEXIDINE 0.12% 15 ML MOUTHWASH. MM SCH (09:00)
[2018-11-28] MEDS: DIVALPROEX 125 MG CAP.SPRINK PO SCH ×4 (09:39→19:24)
[2018-11-28] MEDS: TAMSULOSIN 0.4 MG CAP.ER.24H. PO SCH (09:39)
[2018-11-28] MEDS: VENLAFAXINE 75 MG TABLET. PO SCH (09:39)
[2018-11-28] MEDS: LACTOBACILLUS RHAMNOSUS GG 1 CAPSULE. PO SCH ×2 (09:39→19:24)
[2018-11-28] MEDS: POLYETHYLENE GLYCOL 3350 17 GM PACKET. PO SCH (09:40)
[2018-11-28] MEDS: ZIPRASIDONE 40 MG CAPSULE. PO SCH (09:40)
[2018-11-28] MEDS: glipiZIDE 5 MG TABLET PO SCH (09:40)
[2018-11-28] MEDS: SODIUM CHLORIDE 0.65% NASAL SPRAY 45ML BOTTLE. NS SCH ×2 (09:40→21:00)
[2018-11-28] MEDS: amLODIPine BESYLATE 10 MG TABLET PO SCH (09:40)
[2018-11-28 16:21] VITALS: BP 130/66
[2018-11-28] MEDS: ATORVASTATIN CALCIUM 20 MG TABLET PO SCH (19:24)
[2018-11-28] MEDS: traZODone 50 MG TABLET. PO SCH (19:24)
[2018-11-28] MEDS: ZIPRASIDONE 60 MG CAPSULE. PO SCH (19:24)
--- NOTE | 2018-11-28 22:24 | PDOC ---
Exam Note: Geremias Note: Please also refer to the separate dictated note~for this date of service dictated separately.~Patient seen individually. Discussed the patient with Nursing staff reviewed the chart.~Reviewed interim history and current functioning. Reviewed vital signs,~Labs/ Radiology~and current medications noted below. Continue current treatment with the changes noted in the dictated addendum note Assessment: Vital Signs/I&O: Vital Signs Date Time Temp Pulse Resp B/P (MAP) Pulse Ox O2 Delivery O2 Flow Rate FiO2 11/28/18 21:09 97 Room Air 11/28/18 16:21 98.0 98 20 130/66 (87) I & O 11/27/18 11/27/18 11/28/18 14:59 22:59 06:59 Intake Total 480 ml 120 ml Balance 480 ml 120 ml Labs: Laboratory Tests Test 11/28/18 07:53 Glucose (Fingerstick) 103 mg/dL (70-99) H Current Medications: I have reviewed the current psychotropics carefully including drug interactions. Risk benefit ratio favors no change other than as noted in my dictated progress note. Diagnosis: Problems: (1) Mood disorder (2) Anxiety disorder (3) Anxiety disorder (4) Dementia, vascular, with delusions (5) Dementia, vascular, with depression (6) Dementia in Alzheimer's disease with delusions (7) Dementia in Alzheimer's disease with depression (8) Impulse control disorder (9) Major neurocognitive disorder TERRELL TARANGO MD Nov 28, 2018 22:24
--- NOTE | 2018-11-28 22:38 | PN ---
DATE: 11/27/2018 PSYCHIATRIC PROGRESS NOTE This late entry, 11/27/2018, covers elements not covered in my initial note. SUBJECTIVE: I met with the patient evening of 11/27/2018. The patient slept 4 hours previous night. He did well last evening and during the day on 11/27/2018. He has been a little tired during the day, but very redirectable, pleasant and cooperative. He remains confused. REVIEW OF SYSTEMS: No CV, , pulmonary, eye, ENT system symptoms on review. Reliability poor. MENTAL STATUS EXAM: Oriented to himself. Insight, judgment, recent and remote memory, attention, concentration, fund of knowledge poor, consistent with his diagnosis. IMPRESSION: Unchanged from initial note. PLAN: No change from initial note. MAN Jeermy TARANGO MD DR: BHARATHI/niya JOB#: [id number] / [id number]
[2018-11-29] MEDS: BUDESONIDE 0.5 MG/2 ML NEBU NEB SCH ×2 (05:41→21:02)
[2018-11-29 05:55] VITALS: BP 133/84
[2018-11-29] MEDS: SODIUM CHLORIDE 0.65% NASAL SPRAY 45ML BOTTLE. NS SCH ×2 (09:00→19:50)
[2018-11-29] MEDS: glipiZIDE 5 MG TABLET PO SCH (09:01)
[2018-11-29] MEDS: LACTOBACILLUS RHAMNOSUS GG 1 CAPSULE. PO SCH ×2 (09:01→19:48)
[2018-11-29] MEDS: CHLORHEXIDINE 0.12% 15 ML MOUTHWASH. MM SCH (09:01)
[2018-11-29] MEDS: VENLAFAXINE 75 MG TABLET. PO SCH (09:02)
[2018-11-29] MEDS: DIVALPROEX 125 MG CAP.SPRINK PO SCH ×3 (09:02→19:48)
[2018-11-29] MEDS: amLODIPine BESYLATE 10 MG TABLET PO SCH (09:02)
[2018-11-29] MEDS: TAMSULOSIN 0.4 MG CAP.ER.24H. PO SCH (09:02)
[2018-11-29] MEDS: POLYETHYLENE GLYCOL 3350 17 GM PACKET. PO SCH (09:02)
[2018-11-29] MEDS: ZIPRASIDONE 40 MG CAPSULE. PO SCH (14:15)
[2018-11-29] MEDS: traZODone 50 MG TABLET. PO SCH (19:49)
[2018-11-29] MEDS: ZIPRASIDONE 60 MG CAPSULE. PO SCH (19:49)
[2018-11-29] MEDS: ATORVASTATIN CALCIUM 20 MG TABLET PO SCH (19:49)
--- NOTE | 2018-11-29 22:31 | PDOC ---
Exam Note: Geremias Note: Please also refer to the separate dictated note~for this date of service dictated separately.~Patient seen individually. Discussed the patient with Nursing staff reviewed the chart.~Reviewed interim history and current functioning. Reviewed vital signs,~Labs/ Radiology~and current medications noted below. Continue current treatment with the changes noted in the dictated addendum note Assessment: Vital Signs/I&O: Vital Signs Date Time Temp Pulse Resp B/P (MAP) Pulse Ox O2 Delivery O2 Flow Rate FiO2 11/29/18 21:04 98 Room Air 11/29/18 09:02 118 134/84 11/29/18 05:55 97.2 20 I & O 11/28/18 11/28/18 11/29/18 14:59 22:59 06:59 Intake Total 240 ml 480 ml 240 ml Balance 240 ml 480 ml 240 ml Labs: Laboratory Tests Test 11/29/18 07:24 Glucose (Fingerstick) 93 mg/dL (70-99) Current Medications: I have reviewed the current psychotropics carefully including drug interactions. Risk benefit ratio favors no change other than as noted in my dictated progress note. 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
[2018-11-30] MEDS ORDERED: ACET325T9 PO (00:27)
[2018-11-30] MEDS ORDERED: DIVA125C2 PO ×2 (00:28→00:29)
[2018-11-30] MEDS ORDERED: LACT1CAP21 PO (00:30)
[2018-11-30] MEDS ORDERED: LORA0.5T PO (00:30)
[2018-11-30] MEDS ORDERED: METH29OI TP (00:31)
[2018-11-30] MEDS ORDERED: OLAN5TAB5 PO (00:32)
[2018-11-30] MEDS ORDERED: ZIPR40CA2 PO (00:34)
[2018-11-30] MEDS ORDERED: TRAZ-120 PO ×2 (00:35→00:36)
--- NOTE | 2018-11-30 00:54 | PN ---
DATE: 11/28/2018 PSYCHIATRIC PROGRESS NOTE This late entry 11/28/2018 covers elements not covered in my initial note. SUBJECTIVE: I met with the patient in the evening of 11/28/2018. The patient slept 6 hours previous night. He has been drowsy in the day room, did come out for breakfast at 1400. Depakote was held due to his drowsiness. REVIEW OF SYSTEMS: No CV, , pulmonary, eye, ENT system symptoms on review. Reliability poor. MENTAL STATUS EXAM: Oriented to himself. Insight, judgment, recent and remote memory, attention, concentration, fund of knowledge poor, consistent with his diagnosis mentioned in my initial note. PLAN: No change from initial note. MAN Jeremy TARANGO MD DR: BHARATHI/niya JOB#: [id number] / [id number]
[2018-11-30] MEDS: BUDESONIDE 0.5 MG/2 ML NEBU NEB SCH (05:51)
[2018-11-30 06:47] VITALS: BP 139/65
[2018-11-30] MEDS: DIVALPROEX 125 MG CAP.SPRINK PO SCH (08:14)
[2018-11-30] MEDS: glipiZIDE 5 MG TABLET PO SCH (08:14)
[2018-11-30] MEDS: LACTOBACILLUS RHAMNOSUS GG 1 CAPSULE. PO SCH (08:14)
[2018-11-30 08:15] VITALS: BP 139/65
[2018-11-30] MEDS: VENLAFAXINE 75 MG TABLET. PO SCH (08:15)
[2018-11-30] MEDS: POLYETHYLENE GLYCOL 3350 17 GM PACKET. PO SCH (08:15)
[2018-11-30] MEDS: TAMSULOSIN 0.4 MG CAP.ER.24H. PO SCH (08:15)
[2018-11-30] MEDS: amLODIPine BESYLATE 10 MG TABLET PO SCH (08:15)
[2018-11-30] MEDS: SODIUM CHLORIDE 0.65% NASAL SPRAY 45ML BOTTLE. NS SCH (09:00)
[2018-11-30] MEDS: CHLORHEXIDINE 0.12% 15 ML MOUTHWASH. MM SCH (09:00)
[2018-11-30] MEDS: traMADol 50 MG TABLET PO PRN (11:59)
--- NOTE | 2018-11-30 22:33 | PDOC ---
Exam Note: Geremias Note: Please also refer to the separate dictated note~for this date of service dictated separately.~Patient seen individually. Discussed the patient with Nursing staff reviewed the chart.~Reviewed interim history and current functioning. Reviewed vital signs,~Labs/ Radiology~and current medications noted below. Continue current treatment with the changes noted in the dictated addendum note Assessment: Vital Signs/I&O: Vital Signs Date Time Temp Pulse Resp B/P (MAP) Pulse Ox O2 Delivery O2 Flow Rate FiO2 11/30/18 11:59 18 95 Room Air 11/30/18 08:15 106 139/65 11/30/18 06:47 97.3 I & O 11/29/18 11/29/18 11/30/18 14:59 22:59 06:59 Intake Total 840 ml 480 ml Balance 840 ml 480 ml Labs: Laboratory Tests Test 11/30/18 07:31 Glucose (Fingerstick) 78 mg/dL (70-99) Current Medications: I have reviewed the current psychotropics carefully including drug interactions. Risk benefit ratio favors no change other than as noted in my dictated progress note. 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
--- NOTE | 2018-12-01 06:22 | EKG ---
[address] [address] Test Date: 2018-11-13 Test Time: 16:55:43 Pat Name: MARY STEVENS Department: Room: [address] [place] [address] Gender: M Materials Assistant: : [id number] Requested By: TERRELL TARANGO Order Number: [id number] Reading MD: Measurements Intervals [place] Rate: P: MD: QRS: QRSD: T: QT: QTc: Interpretive Statements
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
--- NOTE | 2018-12-01 13:05 | PN ---
DATE: 11/29/2018 PSYCHIATRIC PROGRESS NOTE This is a late entry 11/29/2018 covers elements not covered in my initial note. SUBJECTIVE: I met with the patient in the evening of 11/29/2018 at length. The patient has been confused, disorganized, but redirectable. He was wandering the previous night. No behaviors noted during the day on 11/29/2018. Takes his medications whole. REVIEW OF SYSTEMS: No CV, , pulmonary, eye, ENT system symptoms on review. Reliability poor. MENTAL STATUS EXAM: Oriented to himself. Insight, judgment, recent and remote memory, attention, concentration, fund of knowledge poor, consistent with his diagnosis mentioned in my initial note. PLAN: No change from initial note. MAN Jeremy TARANGO MD DR: BHARATHI/niya JOB#: [id number] / [id number]
== END 2018-11-30 12:17 | DRG 57 ==
LOC: ER 20:03 → GEROPSY 22:22
PROVIDERS: ADMIT Psychiatry & Neurology Psychiatry; ATTEND Psychiatry & Neurology Psychiatry
DX: G30.9 Alzheimer's disease, unspecified (principal); F01.51 Vascular dementia, unspecified severity, with behavioral disturbance; F02.81 Dementia in other diseases classified elsewhere, unspecified severity, with behavioral disturbance; I13.0 Hypertensive heart and chronic kidney disease with heart failure and stage 1 through stage 4 chronic kidney disease, or unspecified chronic kidney disease; N13.8 Other obstructive and reflux uropathy; E11.22 Type 2 diabetes mellitus with diabetic chronic kidney disease; F32.9 Major depressive disorder, single episode, unspecified; F41.9 Anxiety disorder, unspecified; F63.9 Impulse disorder, unspecified; G89.4 Chronic pain syndrome; I25.5 Ischemic cardiomyopathy; J44.9 Chronic obstructive pulmonary disease, unspecified; N18.9 Chronic kidney disease, unspecified; N30.20 Other chronic cystitis without hematuria; N40.1 Benign prostatic hyperplasia with lower urinary tract symptoms; R13.12 Dysphagia, oropharyngeal phase; Z79.899 Other long term (current) drug therapy; Z82.49 Family history of ischemic heart disease and other diseases of the circulatory system; Z82.5 Family history of asthma and other chronic lower respiratory diseases; Z91.19 Patient's noncompliance with other medical treatment and regimen; Z83.3 Family history of diabetes mellitus; Z88.8 Allergy status to other drugs, medicaments and biological substances; Z91.83 Wandering in diseases classified elsewhere
CPT/HCPCS: 36415; 71045; 73030; 73060; 73070; 80053; 80061; 80164; 81001; 82306; 82947; 83036; 83540; 83550; 83605; 83735; 84436; 84443; 84480; 85025; 85027; 86592; 87070; 87086; 87186; 93005; 94640; J1630; J2060; J7620; J7626; 92610; 99285-25